=== PATIENT | male | born 1935 | race Caucasian/White ===

== ENCOUNTER 2020-11-11 15:27 | Emergency (ER) | payer MEDICARE, OTHER, SELFPAY ==
[2020-11-11 15:41] VITALS: BP 158/77; PULSE 71; RESP 16; TEMP 36.9; O2SAT 99; BMI 23.5
[2020-11-11 15:59] VITALS: PULSE 66; O2SAT 100
[2020-11-11 16:00] VITALS: PULSE 64; O2SAT 99
--- NOTE | 2020-11-11 16:00 | DI.CT.S_ITS ---
PROCEDURE: CT HEAD/BRAIN WO CON INDICATIONS: fall on face, not on thinners, + facial trauma TECHNIQUE: Noncontrast 4.5 mm thick angled axial sections acquired from the foramen magnum to the vertex, with coronal and sagittal reformats. For radiation dose reduction, the following was used: automated exposure control, adjustment of mA and/or kV according to patient size. COMPARISON: None. FINDINGS: Image quality: Excellent. CSF spaces: Basal cisterns are patent. No extra-axial fluid collections. The ventricles are symmetric in size and shape. Brain: No intracranial bleeds or masses. There is cerebral volume loss for age, with resultant ventricular and sulcal prominence. There are periventricular and deep white matter chronic small vessel ischemic changes. There is intracranial internal carotid artery atherosclerosis. Skull: Skull base and calvarium are intact. Please see maxillofacial CT for description of traumatic facial findings. Sinuses: Visualized sinuses and mastoids are clear. IMPRESSION: No acute intracranial abnormality. Dictated by: Jonny Sommer M.D. on 11/11/2020 at 16:30 Approved by: Jonny Sommer M.D. on 11/11/2020 at 16:30
--- NOTE | 2020-11-11 16:00 | DI.CT.S_ITS ---
PROCEDURE: CT FACIAL BONES WO CON INDICATIONS: fall on face, not on thinners, + facial trauma TECHNIQUE: Noncontrast 2.5 mm thick axial images acquired from the mandible through the frontal sinuses, with coronal and sagittal reformatting. For radiation dose reduction, the following was used: automated exposure control, adjustment of mA and/or kV according to patient size. COMPARISON: None. FINDINGS: Image quality: Excellent. Bones and teeth: Orbital marroquin are intact. Sinus marroquin show no fracture or deformity. Nasal bones and septum are intact. Visualized portions of the mandible demonstrate no fractures or subluxation. Zygomatic arches are intact. Pterygoid plates are intact. Visualized portions of the skull base and auditory canals are intact. Sinuses: Paranasal sinuses are aerated, without fluid levels, mucosal thickening, or mucoceles. Mastoid air cells are aerated. Soft tissues: No edema, masses, or fluid collections. No enlarged lymph nodes. No soft tissue lacerations or debris. Vascular: Visualized vascular structures appear normal in the absence of contrast. Bony vascular foramina and canals are intact. IMPRESSION: No facial fracture identified. Dictated by: Jonny Sommer M.D. on 11/11/2020 at 16:31 Approved by: Jonny Sommer M.D. on 11/11/2020 at 16:32
--- NOTE | 2020-11-11 16:08 | DI.CT.S_ITS ---
PROCEDURE: CT CERVICAL SPINE WO CON INDICATIONS: FALL ON FACE TECHNIQUE: Noncontrast 3 mm thick sections acquired from the skull base to the T4 level. Sagittal and coronal reformats were then constructed. For radiation dose reduction, the following was used: automated exposure control, adjustment of mA and/or kV according to patient size. COMPARISON: None. FINDINGS: Image quality: Excellent. Bones: No fracture. Normal cervical spine vertebral body height and alignment. Normal configuration of the craniocervical junction. The facets are congruent with no evidence of subluxation or dislocation. Extensive degenerative changes. Soft tissues: Prevertebral soft tissues are normal in thickness. No paravertebral hematomas. No apical pneumothoraces. IMPRESSION: No CT evidence of acute traumatic cervical spine injury. Dictated by: Jonny Sommer M.D. on 11/11/2020 at 16:32 Approved by: Jonny Sommer M.D. on 11/11/2020 at 16:33
--- NOTE | 2020-11-11 17:02 | ED_ITS ---
HPI - Fall General Chief Complaint: Fall Stated Complaint: ref by [facility], ct scan, injuries in mouth Time Seen by Provider: 11/11/20 15:45 Source: patient Mode of arrival: Ambulatory History of Present Illness HPI Narrative: Patient is an 85-year-old male who presents after ground level fall. He was playing pickle ball on [facility] when he in a hole on to his face. He feels like he chipped his front teeth. He initially was evaluated at the clinic with a sewed up his right hand. He had no loss of consciousness he has no numbness tingling weakness. He has not had any nausea or vomiting. He is not on any antiplatelet or anticoagulation medication. He was sent here for CT scan Related Data Home Medications Medication Instructions Recorded Confirmed levothyroxine 25 mcg tablet 25 mcg PO DAILY 08/19/20 09/01/20 (Synthroid) Previous Rx's Medication Instructions Recorded gabapentin 100 mg capsule 100 mg PO BEDTIME #360 cap 08/21/20 Allergies Allergy/AdvReac Type Severity Reaction Status Date / Time No Known Drug Allergies Allergy Verified 09/01/20 10:22 Review of Systems Review of Systems Narrative: GENERAL: Denies chills, fatigue, malaise, fever, sweats, travel HEENT: Denies sinus pain, ear pain, sore throat, difficulty swallowing, neck pain RESPIRATORY: Denies dyspnea, cough, wheezing, hemoptysis, sputum. CARDIOVASCULAR: Denies chest pain, palpitations, orthopnea, edema GASTROINTESTINAL: Denies nausea, vomiting, abdominal pain, diarrhea, constipation, melena. : Denies dysuria, frequency, incontinence, hematuria, urinary retention, flank pain. MUSCULOSKELETAL: Denies weakness, joint pain, or bony pain SKIN: No rash, no erythema, no pruritus NEUROLOGIC: Denies weakness, dizziness, headache, numbness, change in speech, confusion. no LOC PSYCHIATRIC: No concerning psychosocial issues. 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 HEENT: Head atraumatic,EOMI, pupils reactive, face symmetric no facial tenderness, no bony step-offs he does have superficial laceration of left upper lip mild swelling able to bite down on popsicle stick and all side, moist mucous membranes NECK: No vertebral tenderness no step-off CARDIOVASCULAR: Regular rate and rhythm without murmurs, rubs or gallops. RESPIRATORY: Breath sounds equal bilaterally, no wheezes rales or rhonchi. ABDOMEN: Soft, nontender. Normoactive bowel sounds all 4 quadrants. No guarding or rebound. EXTREMITIES: Normal range of motion, no clubbing or edema. Neurovascularly intact NEUROLOGICAL: Alert and oriented x4.Normal gait and speech. SKIN: Warm, dry, no laceration, no petechiae, no rashes or lesions. Course Orders Ordered: ED Orders 11/11/20 16:00 CT facial bones wo con Stat CT head/brain wo con Stat 11/11/20 16:08 CT cervical spine wo con Stat Vital Signs Vital signs: Vital Signs - 8 hr 11/11/20 15:41 11/11/20 15:59 11/11/20 16:00 Temperature 98.4 F Pulse Rate 71 66 64 Respiratory Rate 16 Blood Pressure 158/77 H Pulse Oximetry 99 100 99 11/11/20 17:25 Temperature Pulse Rate 70 Respiratory Rate 16 Blood Pressure 184/85 H Pulse Oximetry 100 MDM - Fall Lab Data Labs: Urine Dip Bedside Urine Glucose Negative Bedside Urine Bilirubin - Negative Bedside Urine Ketone - Negative Urine Specific [place] 1.015 Bedside Urine Occult Blood - Negative Bedside Urine pH 6.5 Bedside Urine Protein - Negative Bedside Urine Urobilinogen - Negative Bedside Urine Nitrite - Negative Bedside Urine Leukocytes - Negative Esterase Imaging Data CT scan - head: Radiologist's Impression: PROCEDURE: CT HEAD/BRAIN WO CON INDICATIONS: fall on face, not on thinners, + facial trauma TECHNIQUE: Noncontrast 4.5 mm thick angled axial sections acquired from the foramen magnum to the vertex, with coronal and sagittal reformats. For radiation dose reduction, the following was used: automated exposure control, adjustment of mA and/or kV according to patient size. COMPARISON: None. FINDINGS: Image quality: Excellent. CSF spaces: Basal cisterns are patent. No extra-axial fluid collections. The ventricles are symmetric in size and shape. Brain: No intracranial bleeds or masses. There is cerebral volume loss for age, with resultant ventricular and sulcal prominence. There are periventricular and deep white matter chronic small vessel ischemic changes. There is intracranial internal carotid artery atherosclerosis. Skull: Skull base and calvarium are intact. Please see maxillofacial CT for description of traumatic facial findings. Sinuses: Visualized sinuses and mastoids are clear. IMPRESSION: No acute intracranial abnormality. Dictated by: Jonny Sommer M.D. on 11/11/2020 at 16:30 CT - cervical spine: Radiologist's Impression: PROCEDURE: CT CERVICAL SPINE WO CON INDICATIONS: FALL ON FACE TECHNIQUE: Noncontrast 3 mm thick sections acquired from the skull base to the T4 level. Sagittal and coronal reformats were then constructed. For radiation dose reduction, the following was used: automated exposure control, adjustment of mA and/or kV according to patient size. COMPARISON: None. FINDINGS: Image quality: Excellent. Bones: No fracture. Normal cervical spine vertebral body height and alignment. Normal configuration of the craniocervical junction. The facets are congruent with no evidence of subluxation or dislocation. Extensive degenerative changes. Soft tissues: Prevertebral soft tissues are normal in thickness. No paravertebral hematomas. No apical pneumothoraces. IMPRESSION: No CT evidence of acute traumatic cervical spine injury. Dictated by: Jonny Sommer M.D. on 11/11/2020 at 16:32 CT FACE: Radiologist's Impression: PROCEDURE: CT FACIAL BONES WO CON INDICATIONS: fall on face, not on thinners, + facial trauma TECHNIQUE: Noncontrast 2.5 mm thick axial images acquired from the mandible through the frontal sinuses, with coronal and sagittal reformatting. For radiation dose reduction, the following was used: automated exposure control, adjustment of mA and/or kV according to patient size. COMPARISON: None. FINDINGS: Image quality: Excellent. Bones and teeth: Orbital marroquin are intact. Sinus marroquin show no fracture or d eformity. Nasal bones and septum are intact. Visualized portions of the mandible demonstrate no fractures or subluxation. Zygomatic arches are intact. Pterygoid plates are intact. Visualized portions of the skull base and auditory canals are intact. Sinuses: Paranasal sinuses are aerated, without fluid levels, mucosal thickening, or mucoceles. Mastoid air cells are aerated. Soft tissues: No edema, masses, or fluid collections. No enlarged lymph nodes. No soft tissue lacerations or debris. Vascular: Visualized vascular structures appear normal in the absence of contrast. Bony vascular foramina and canals are intact. IMPRESSION: No facial fracture identified. Dictated by: Jonny Sommer M.D. on 11/11/2020 at 16:31 Approved by: Jonny Sommer M.D. on 11/11/2020 at 16:32 [facility] Narrative Medical decision making narrative: The patient had no loss of consciousness not on anticoagulation. Head CT face CT and cervical spine CT or negative. All he had a laceration of his hand already repaired. At this time he is able to go home. Recommend that he follow-up with a dentist he feels like his teeth are cracked do not see any obvious fracture. Discharge Plan Departure Patient Disposition: Home Clinical Impression: Fall, Closed head injury Instructions: How to Prevent Falls, Closed Head Injury Activity Restrictions/Additional Instructions: *You have been diagnosed with fall *What to do: Expect to be sore for the next couple of days. Increase activity as tolerated. You may need to see a dentist in regards to your teeth. *Continue to take medications as directed Tylenol 650 mg every 4-6 hours if needed for [id number]-[id number] pain Motrin 600 mg every 6-8 hours if needed for [id number] pain *Follow up with your primary care provider in 2-3 days *Return to ER if you should have increasing headache, persistent vomiting, numbness, tingling, weakness, confusion or any new, worsening or concerning symptoms Prescriptions: No Action levothyroxine [Synthroid] 25 mcg tablet 25 mcg PO DAILY RF: 0 gabapentin 100 mg capsule 100 mg PO BEDTIME Qty: 360 RF: 3 Referrals: [place] Mike MD [Primary Care Provider] -
[2020-11-11 17:25] VITALS: BP 184/85; PULSE 70; RESP 16; O2SAT 100
== END 2020-11-11 17:26 | disposition home or self-care (01) ==
PROVIDERS: Emergency Provider Emergency Medicine; PCP Family Medicine
DX: S09.90XA Unspecified injury of head, initial encounter (principal); W19.XXXA Unspecified fall, initial encounter
CPT/HCPCS: 70450; 70486; 72125; 81003; 99283; 99284

== ENCOUNTER → 2021-01-01 11:20 | Outpatient (CLI) | payer MEDICARE, OTHER, SELFPAY ==
[2021-01-01 18:53] LABS: Add Manual Diff / Slide Review NO; Basophils Absolute Auto 0 /uL (0-100); Basophils Percent Auto 0.7 % (0-2); Eosinophils Absolute Auto 100 /uL (0-450); Eosinophils Percent Auto 1.5 % (2-4); Hematocrit 39.5 % (41-53); Hemoglobin 12.9 g/dL (13.5-17.5); Lymphocytes Absolute Auto 1000 /uL (1100-4500); Lymphocytes Percent Auto 17.1 % (25-40); Mean Corpuscular HGB Conc 32.7 % (30-36); Mean Corpuscular Hemoglobin 30.1 PG (26-34); Monocytes Absolute Auto 600 /uL (0-900); Monocytes Percent Auto 10.8 % (3-14); Neutrophils Absolute Auto 4100 /uL (1500-7000); Neutrophils Percent Auto 69.9 % (50-75); Platelet Count 176 X10^3/uL (150-400); White Blood Cell Count 5.9 X10^3/uL (4.5-11.0)
== END ==
PROVIDERS: PCP Family Medicine; Visit Provider Family Medicine
DX: G64 Other disorders of peripheral nervous system (principal)
CPT/HCPCS: 85025

== ENCOUNTER → 2021-02-12 15:48 | Outpatient (CLI) | payer MEDICARE, OTHER, SELFPAY ==
--- NOTE | 2021-02-12 15:52 | DI.MRI.S_ITS ---
PROCEDURE: MR KNEE LT WO CON INDICATIONS: Clicking and pain in left knee TECHNIQUE: Noncontrast sagittal PD fast spin echo and T2 fast spin echo with fat saturation, sagittal 3-D FLASH with fat saturation; coronal T1 spin echo and PD fast spin echo with fat saturation, and axial PD fast spin echo with fat saturation through the knee. COMPARISON: [facility] ([facility]), CR, XR KNEE LT 3V, 01/22/2021, 14:41. FINDINGS: Image quality: Excellent. Menisci: There is medial meniscal extrusion. There is complex tear involving the body and posterior horn of the medial meniscus. In addition, there is a horizontal tear involving the anterior horn of the medial meniscus. The lateral meniscus demonstrates normal morphology and internal signal. The meniscal root ligaments appear intact. Cruciate ligaments: The anterior and posterior cruciate ligaments appear intact. Medial structures: The medial collateral ligament appears intact. The semimembranosus tendon insertions and meniscocapsular junction appear intact. Visualized portions of the pes anserinus tendons appear normal. No abnormal bursal fluid. Lateral structures: The lateral collateral ligament, long and short heads of the biceps femoris tendon appear intact. The popliteus tendon appears normal. Iliotibial band appears normal. Anterior structures: The quadriceps and patellar tendons appear intact. Patellar alignment is normal. No femoral trochlear dysplasia or ventral trochlear prominence. No edema in the infrapatellar fat pad. Bones and cartilage: No bone marrow contusions or fractures. Severe cartilage thinning and full-thickness cartilage defect involving the medial femorotibial compartment with associated subchondral edema secondary to a bone on bone. Mild cartilage loss is also noted in the lateral femorotibial compartment and the patellofemoral compartment. Joint space: There is small knee joint fluid. There is a moderate sized Ordonez's cyst. Normal appearing synovial plicae are incidentally noted. IMPRESSION: 1. Medial meniscal extrusion and complex tear involving the body and posterior horn of the medial meniscus. There is also a horizontal tear involving the anterior horn of the medial meniscus. 2. 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 Subchondral edema in the medial femoral condyle and medial tibial plateau secondary to [id number]. 3. Small knee joint effusion. 4. A moderate-sized Ordonez cyst. Dictated by: Pattie Browning M.D. on 02/13/2021 at 8:33 Approved by: Pattie Browning M.D. on 02/13/2021 at 8:40
== END ==
PROVIDERS: PCP Physician Assistant; Referring Provider Family Medicine; Visit Provider Family Medicine
DX: S83.232A Complex tear of medial meniscus, current injury, left knee, initial encounter (principal); M94.262 Chondromalacia, left knee; M25.462 Effusion, left knee; M71.22 Synovial cyst of popliteal space [Baker], left knee; M25.562 Pain in left knee
CPT/HCPCS: 73721

== ENCOUNTER → 2021-06-26 11:39 | Outpatient (CLI) | payer MEDICARE, OTHER, SELFPAY ==
[2021-06-26 18:42] LABS: Alanine Aminotransferase 23 IU/L (<50); Albumin 4.2 g/dL (3.5-5.0); Albumin Globulin Ratio 1.4 (1.0-2.8); Alkaline Phosphatase 47 U/L (38-126); Aspartate Aminotransferase 47 IU/L (17-59); Bilirubin Total 1.6 mg/dL (0.2-1.3); Blood Urea Nitrogen 27 mg/dL (9-20); Calcium 9.5 mg/dL (8.4-10.2); Carbon Dioxide 32 mmol/L (22-32); Chloride 99 mmol/L (98-107); Estimated Glomerular Filt Rate 46 mL/min (>60); Globulin 2.9 g/dL (1.7-4.1); Glucose 82 mg/dL (80-110); HEMOLYSIS 15 (0-50); Potassium 4.6 mmol/L (3.4-5.1); Sodium 139 mmol/L (137-145); Total Protein 7.1 g/dL (6.3-8.2)
[2021-06-26 18:46] LABS: Add Manual Diff / Slide Review NO; Basophils Absolute Auto 0 /uL (0-100); Basophils Percent Auto 0.5 % (0-2); Eosinophils Absolute Auto 100 /uL (0-450); Eosinophils Percent Auto 1.1 % (2-4); Hematocrit 43.2 % (41-53); Hemoglobin 14.6 g/dL (13.5-17.5); Lymphocytes Absolute Auto 1300 /uL (1100-4500); Lymphocytes Percent Auto 13.7 % (25-40); Mean Corpuscular HGB Conc 33.9 % (30-36); Mean Corpuscular Hemoglobin 30.6 PG (26-34); Mean Corpuscular Volume 90.3 fL (80-100); Monocytes Absolute Auto 1000 /uL (0-900); Monocytes Percent Auto 10.6 % (3-14); Neutrophils Absolute Auto 7100 /uL (1500-7000); Neutrophils Percent Auto 74.1 % (50-75); Platelet Count 171 X10^3/uL (150-400); Red Blood Cell Count 4.78 X10^6/uL (4.5-5.9); Red Cell Distribution Width 14.2 % (11.6-14.8); White Blood Cell Count 9.6 X10^3/uL (4.5-11.0)
== END ==
PROVIDERS: PCP Family Medicine; Visit Provider Physician Assistant
DX: G64 Other disorders of peripheral nervous system (principal); S39.92XA Unspecified injury of lower back, initial encounter
CPT/HCPCS: 80053; 85025

== ENCOUNTER → 2021-07-06 11:03 | Outpatient (CLI) | payer MEDICARE, OTHER, SELFPAY ==
[2021-07-06 18:46] LABS: Add Manual Diff / Slide Review NO; Basophils Absolute Auto 100 /uL (0-100); Basophils Percent Auto 0.9 % (0-2); Eosinophils Absolute Auto 100 /uL (0-450); Eosinophils Percent Auto 1.7 % (2-4); Hematocrit 40.5 % (41-53); Hemoglobin 13.7 g/dL (13.5-17.5); Lymphocytes Absolute Auto 1400 /uL (1100-4500); Lymphocytes Percent Auto 21.1 % (25-40); Mean Corpuscular HGB Conc 33.9 % (30-36); Mean Corpuscular Hemoglobin 30.5 PG (26-34); Mean Corpuscular Volume 89.8 fL (80-100); Monocytes Absolute Auto 600 /uL (0-900); Monocytes Percent Auto 9.1 % (3-14); Neutrophils Absolute Auto 4600 /uL (1500-7000); Neutrophils Percent Auto 67.2 % (50-75); Platelet Count 238 X10^3/uL (150-400); Red Blood Cell Count 4.51 X10^6/uL (4.5-5.9); White Blood Cell Count 6.8 X10^3/uL (4.5-11.0)
[2021-07-06 18:57] LABS: Alanine Aminotransferase 19 IU/L (<50); Albumin 3.9 g/dL (3.5-5.0); Albumin Globulin Ratio 1.6 (1.0-2.8); Alkaline Phosphatase 54 U/L (38-126); Aspartate Aminotransferase 31 IU/L (17-59); BUN Creatinine Ratio 21.4 (6-22); Bilirubin Total 0.8 mg/dL (0.2-1.3); Blood Urea Nitrogen 28 mg/dL (9-20); Calcium 9.7 mg/dL (8.4-10.2); Carbon Dioxide 30 mmol/L (22-32); Chloride 103 mmol/L (98-107); Estimated Glomerular Filt Rate 54 mL/min (>60); Globulin 2.5 g/dL (1.7-4.1); Glucose 95 mg/dL (80-110); HEMOLYSIS 16 (0-50); Potassium 4.4 mmol/L (3.4-5.1); Sodium 139 mmol/L (137-145); Total Protein 6.4 g/dL (6.3-8.2)
== END ==
PROVIDERS: PCP Family Medicine; Visit Provider Physician Assistant
DX: G64 Other disorders of peripheral nervous system (principal); S22.080A Wedge compression fracture of T11-T12 vertebra, initial encounter for closed fracture; S39.92XA Unspecified injury of lower back, initial encounter; Z79.899 Other long term (current) drug therapy
CPT/HCPCS: 80053; 85025

== ENCOUNTER → 2022-08-04 11:31 | Outpatient (CLI) | payer MEDICARE, OTHER, SELFPAY ==
--- NOTE | 2022-08-04 11:34 | DI.CT.S_ITS ---
PROCEDURE: CT CHEST WO CON INDICATIONS: coughing food particles, severe coughing spasms TECHNIQUE: Noncontrast 5 mm thick sections acquired from the pulmonary apices to the posterior costophrenic angles. 1 mm lung window, 5 mm thick coronal and sagittal and 7 mm axial MIP reformats were then acquired. For radiation dose reduction, the following was used: automated exposure control, adjustment of mA and/or kV according to patient size. COMPARISON: None. FINDINGS: Image quality: Excellent. Lungs and pleura: No acute air space opacities. No pleural effusions or pneumothorax. Central and peripheral airways are patent and normal in caliber. Mediastinum: Heart size is normal. Mild coronary artery calcification. No pericardial effusion. There are a few borderline anterior mediastinal lymph nodes. No mediastinal adenopathy by size criteria. Thoracic aorta and central pulmonary arteries are normal in size. Esophagus is normal in caliber. There is a moderate-sized hiatal hernia containing about proximal 1/3 of the stomach and the GE junction. Bones and chest wall: There is a compression fracture of T12 which appears chronic. No other fractures or suspicious bone lesions. Mild reverse S scoliosis. No supraclavicular or axillary adenopathy. Normal thyroid. Abdomen: Incompletely evaluated renal cysts and probable abdominal aortic aneurysm. 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 IMPRESSION: 1. No airspace disease to suggest aspiration pneumonia. 2. Moderate-sized hiatal hernia may predispose to gastroesophageal reflux. 3. Incidental findings in the upper abdomen as described. Dictated by: Ashley Bragg M.D. on 08/04/2022 at 17:27 Approved by: Ashley Bragg M.D. on 08/04/2022 at 17:44
--- NOTE | 2022-08-04 11:34 | DI.RAD.S_ITS ---
PROCEDURE: FL BARIUM SWALLOW INDICATIONS: coughing food particles, suspect hernia COMPARISON: [facility], CT, CT CHEST WO [facility], 08/04/2022, 11:41. FINDINGS: Function: There is moderately severe esophageal dysmotility with mild disorganized esophageal peristalsis. Mild gastroesophageal reflux is elicited joint examination. There is normal transit of a calibrated barium tablet through the esophagus into the stomach. Morphology: There is a moderate-sized Zenker's diverticulum. A large paraesophageal hiatal hernia is present. Air-contrast images demonstrate normal mucosal morphology. There is mild narrowing of distal esophagus at the gastroesophageal junction. No esophageal obstruction. Limited images of the stomach demonstrate normal appearance. IMPRESSION: 1. A Zenker's diverticulum. 2. Large paraesophageal hiatal hernia. 3. Moderately severe esophageal dysmotility. 4. Mild gastroesophageal reflux. 5. Mild narrowing at the gastroesophageal junction. There is, however, no esophageal obstruction. If clinically indicated, EGD can be obtained for further evaluation. Dictated by: Pattie Browning M.D. on 08/04/2022 at 13:19 Approved by: Pattie Browning M.D. on 08/04/2022 at 13:38
== END ==
PROVIDERS: PCP Family Medicine; Referring Provider Family Medicine; Visit Provider Family Medicine
DX: K22.5 Diverticulum of esophagus, acquired (principal); K44.9 Diaphragmatic hernia without obstruction or gangrene; K22.4 Dyskinesia of esophagus; K21.9 Gastro-esophageal reflux disease without esophagitis
CPT/HCPCS: 71250; 74220

== ENCOUNTER → 2022-08-10 13:00 | Outpatient (CLI) | payer MEDICARE, OTHER, SELFPAY ==
[2022-08-10 20:03] LABS: Add Manual Diff / Slide Review NO; Basophils Absolute Auto 0 /uL (0-100); Basophils Percent Auto 0.5 % (0-2); Eosinophils Absolute Auto 100 /uL (0-450); Eosinophils Percent Auto 2.2 % (2-4); Hematocrit 40.3 % (41-53); Hemoglobin 13.3 g/dL (13.5-17.5); Lymphocytes Absolute Auto 1200 /uL (1100-4500); Lymphocytes Percent Auto 20.1 % (25-40); Mean Corpuscular HGB Conc 33.1 % (30-36); Mean Corpuscular Hemoglobin 29.3 PG (26-34); Mean Corpuscular Volume 88.7 fL (80-100); Monocytes Absolute Auto 800 /uL (0-900); Monocytes Percent Auto 12.8 % (3-14); Neutrophils Absolute Auto 3900 /uL (1500-7000); Neutrophils Percent Auto 64.4 % (50-75); Platelet Count 204 X10^3/uL (150-400); Red Blood Cell Count 4.55 X10^6/uL (4.5-5.9); Red Cell Distribution Width 15.6 % (11.6-14.8); White Blood Cell Count 6.1 X10^3/uL (4.5-11.0)
[2022-08-10 20:09] LABS: Alanine Aminotransferase 17 IU/L (<50); Albumin 3.7 g/dL (3.5-5.0); Albumin Globulin Ratio 1.4 (1.0-2.8); Alkaline Phosphatase 72 U/L (38-126); Aspartate Aminotransferase 28 IU/L (17-59); BUN Creatinine Ratio 20.2 (6-22); Bilirubin Total 1.1 mg/dL (0.2-1.3); Blood Urea Nitrogen 25 mg/dL (9-20); Calcium 9.3 mg/dL (8.4-10.2); Carbon Dioxide 30 mmol/L (22-32); Chloride 102 mmol/L (98-107); Estimated Glomerular Filt Rate 57 mL/min (>60); Globulin 2.6 g/dL (1.7-4.1); Glucose 88 mg/dL (80-110); HEMOLYSIS 16 (0-50); Potassium 4.4 mmol/L (3.4-5.1); Sodium 139 mmol/L (137-145); Total Protein 6.3 g/dL (6.3-8.2)
[2022-08-10 20:38] LABS: Prostate Specific Antigen Scrn 13.9 ng/mL (0.1-4.0); TSH w/ Reflex to FT4 4.45 uIU/mL (0.47-4.68)
== END ==
PROVIDERS: PCP Family Medicine; Visit Provider Family Medicine
DX: G60.9 Hereditary and idiopathic neuropathy, unspecified (principal); K59.00 Constipation, unspecified; Z12.5 Encounter for screening for malignant neoplasm of prostate; K21.9 Gastro-esophageal reflux disease without esophagitis; N28.9 Disorder of kidney and ureter, unspecified
CPT/HCPCS: 80053; 84443; 85025; G0103

== ENCOUNTER → 2022-08-18 08:47 | Outpatient (CLI) | payer MEDICARE, OTHER, SELFPAY ==
[2022-08-18 20:16] LABS: Prostate Specific Antigen 13.3 ng/mL (0.10-4.00)
== END ==
PROVIDERS: PCP Family Medicine; Visit Provider Family Medicine
DX: N40.0 Benign prostatic hyperplasia without lower urinary tract symptoms (principal); R97.20 Elevated prostate specific antigen [PSA]
CPT/HCPCS: 84153

== ENCOUNTER → 2022-08-20 08:31 | Outpatient (CLI) | payer MEDICARE, OTHER, SELFPAY ==
--- NOTE | 2022-08-20 08:32 | DI.CT.S_ITS ---
PROCEDURE: CT ABDOMEN PELVIS W CON INDICATIONS: high PSA, new onset narrow stools TECHNIQUE: After the administration of intravenous contrast, axial sections acquired from the lung bases to the pubic symphysis. Coronal and sagittal reformats were performed. For radiation dose reduction, the following was used: automated exposure control, adjustment of mA and/or kV according to patient size. COMPARISON: [facility], CT, CT CHEST ABDOMEN PELVIS WITH CONTRAST, 06/24/2021, 14:37. FINDINGS: Image quality: Good Lower chest: Moderate hiatal hernia. Unremarkable lung bases. There is suspected coronary calcifications. Solid organs: Liver morphology suggestive of chronic liver disease. There may also be steatosis. Gallbladder appears unremarkable. No pathologic dilation of the biliary tree or pancreatic duct. No splenomegaly. No adrenal nodules. Bosniak 1 and 2 renal lesions are present, for which no dedicated followup is necessary per 2019 proposed guidelines. No ureter dilation. Parapelvic cysts are also present. Vessels and lymph nodes: No pathologic adenopathy by size criteria. There are few prominent lymph nodes that are indeterminate in the setting of possible prostate cancer, for example adjacent to the left psoas muscle measuring 8 mm (/48). Abdominal aortic aneurysm measures up to 4.8 cm in AP dimension on sagittal images, previously similar. Bowel and peritoneum: Moderate-sized duodenal diverticulum. Numerous colonic diverticula are present. No focal mass. There is an area of narrowing however at the rectosigmoid junction, which is indeterminate for malignancy versus peristalsis. See axial image . This is not a colonographic study. No pathologic ascites or abscess. Body wall: Small fat containing right inguinal hernia. Tiny umbilical hernia also present. Pelvis: Confluent enhancement at the left apically peripheral zone of the prostate. This area is more conspicuous compared to prior CT from 2021. There also suspected BPH nodules. Bladder is unremarkable. Bones: Degenerative changes. No definitely suspicious osseous lesion. Height loss of the T12 vertebral body, increased compared to 2021. IMPRESSION: Findings suspicious for prostate malignancy in the left peripheral zone apex (). Findings would be better evaluated on prostate MRI in the setting of elevated PSA. In addition, there is indeterminate borderline enlarged lymph node adjacent to the left psoas muscle (/48). If there is future tissue confirmation of prostate malignancy, consider referral for PSMA PET for further evaluation. There is an area of narrowing at the rectosigmoid junction, indeterminate for peristalsis versus adenocarcinoma (2/68). Recommend correlation with colonoscopy. Numerous colonic diverticula are present. Abdominal aortic aneurysm measuring up to 4.8 cm in AP dimension. Increased height loss of the T12 vertebral body compared to prior. Other incidental and likely nonacute findings above. Dictated by: Eduardo Ly M.D. on 08/20/2022 at 11:18 Approved by: Eduardo Ly M.D. on 08/20/2022 at 11:26
== END ==
PROVIDERS: PCP Family Medicine; Referring Provider Family Medicine; Visit Provider Family Medicine
DX: N28.1 Cyst of kidney, acquired (principal); N28.89 Other specified disorders of kidney and ureter; K57.10 Diverticulosis of small intestine without perforation or abscess without bleeding; R97.20 Elevated prostate specific antigen [PSA]; R19.5 Other fecal abnormalities; K44.9 Diaphragmatic hernia without obstruction or gangrene; I71.40 Abdominal aortic aneurysm, without rupture, unspecified; K57.90 Diverticulosis of intestine, part unspecified, without perforation or abscess without bleeding; K40.90 Unilateral inguinal hernia, without obstruction or gangrene, not specified as recurrent
CPT/HCPCS: 74177; Q9967

== ENCOUNTER → 2022-09-28 10:47 | Outpatient (CLI) | payer MEDICARE, OTHER, SELFPAY ==
--- NOTE | 2022-09-28 10:48 | DI.NM.S_ITS ---
PROCEDURE: NM HARSHAD PERF SPECT R&S PHARM Rest and pharmacological stress myocardial perfusion SPECT with gated imaging and ejection fraction RADIOPHARMACEUTICAL: 12.2 mCi Tc-99m tetrafosmin IV at rest and 25.5 mCi Tc-99m tetrafosmin IV at peak effect of pharmacological stress. Azm-pje-rawsskif was performed. INDICATIONS: dyspnea TECHNIQUE: Radiopharmaceutical was injected at peak stress test, and also at rest. SPECT images were obtained. SPECT myocardial perfusion images were displayed in short axis, horizontal long axis, and vertical long axis views. Gated images were reviewed using [employer] software. COMPARISON: None. CARDIAC STRESS: A pharmacologic stress test was performed under the supervision of an attending staff, using an infusion of lexiscan 0.4mg IV X1. Hemodynamic data: There is normal blood pressure and heart rate response to pharmacologic stress. Symptoms: The patient denied anginal chest pain. Aminophylline: none EKG: No diagnostic changes of ischemia; no ectopy. FINDINGS: Raw data: There is good myocardial uptake of radiotracer. No significant motion artifacts. Lstf-qx-ucnph ratio is 0.36 (normal is less than 0.38 for tetrafosmin tracer). Left ventricle function: Gated images demonstrate normal left ventricular wall thickening. No segmental wall motion abnormalities. No transient ischemic dilation; TID is 0.95 (normal less than 1.3). Left ventricle resting end diastolic volume is 95 mL. Left ventricle stress ejection fraction is 73%; normal range is above 45%. Myocardial perfusion: There is a moderately intense fixed inferior wall defect that resolves with prone imaging, suggesting diaphragmatic attenuation artifact. No ischemia or infarction. IMPRESSION: Low risk, probably normal pharmaceutical nuclear stress test 1) There is a moderately intense fixed inferior wall defect that resolves with prone imaging, suggesting diaphragmatic attenuation artifact. No ischemia or infarction. 2) Normal left ventricular size, wall motion, and systolic function (EF post stress 73%). 3) No ST changes with lexiscan. 4) No angina during the study. 5) No prior nuclear stress test available for comparison. Dictated by: Anna Johnson MD on 09/29/2022 at 13:26 Approved by: Anna Johnson MD on 09/29/2022 at 13:29
== END ==
PROVIDERS: PCP Family Medicine; Referring Provider Family Medicine; Visit Provider Family Medicine
DX: R06.00 Dyspnea, unspecified (principal); I25.10 Atherosclerotic heart disease of native coronary artery without angina pectoris
CPT/HCPCS: 78452; 93017; A9502; J2785

== ENCOUNTER → 2022-11-08 14:31 | Outpatient (CLI) | payer MEDICARE, OTHER, SELFPAY ==
[2022-11-08 16:02] LABS: Prostate Specific Antigen Scrn 15.9 ng/mL (0.1-4.0)
== END ==
PROVIDERS: PCP Family Medicine; Referring Provider Family Medicine; Visit Provider Family Medicine
DX: Z12.5 Encounter for screening for malignant neoplasm of prostate (principal); N42.89 Other specified disorders of prostate
CPT/HCPCS: 36415; G0103

== ENCOUNTER → 2023-06-09 09:50 | Outpatient (CLI) | payer MEDICARE, OTHER, SELFPAY ==
[2023-06-09 20:38] LABS: Add Manual Diff / Slide Review NO; Basophils Absolute Auto 0 /uL (0-100); Basophils Percent Auto 0.5 % (0-2); Eosinophils Absolute Auto 200 /uL (0-450); Eosinophils Percent Auto 1.7 % (2-4); Hemoglobin 14.2 g/dL (13.5-17.5); Lymphocytes Absolute Auto 1600 /uL (1100-4500); Lymphocytes Percent Auto 15.8 % (25-40); Mean Corpuscular HGB Conc 32.9 % (30-36); Mean Corpuscular Hemoglobin 30.1 PG (26-34); Mean Corpuscular Volume 91.5 fL (80-100); Monocytes Absolute Auto 900 /uL (0-900); Monocytes Percent Auto 9.5 % (3-14); Neutrophils Absolute Auto 7100 /uL (1500-7000); Neutrophils Percent Auto 72.5 % (50-75); Platelet Count 209 X10^3/uL (150-400); Red Blood Cell Count 4.71 X10^6/uL (4.5-5.9); Red Cell Distribution Width 14.7 % (11.6-14.8); White Blood Cell Count 9.8 X10^3/uL (4.5-11.0)
[2023-06-09 20:40] LABS: Cholesterol 140 mg/dL (140-199); HDL Cholesterol 47 mg/dL (40-60); LDL Cholesterol Calculated 72 mg/dL (<100); Triglycerides 107 mg/dL (35-150)
[2023-06-09 21:10] LABS: TSH w/ Reflex to FT4 4.22 uIU/mL (0.47-4.68)
== END ==
PROVIDERS: PCP Family Medicine; Visit Provider Physician Assistant Medical
DX: E03.9 Hypothyroidism, unspecified (principal); D64.9 Anemia, unspecified; I25.10 Atherosclerotic heart disease of native coronary artery without angina pectoris; I25.84 Coronary atherosclerosis due to calcified coronary lesion
CPT/HCPCS: 80061; 84443; 85025

== ENCOUNTER → 2023-07-27 08:55 | Outpatient (CLI) | payer MEDICARE, OTHER, SELFPAY ==
[2023-07-27 09:41] LABS: Add Manual Diff / Slide Review NO; Basophils Absolute Auto 100 /uL (0-100); Basophils Percent Auto 0.7 % (0-2); Eosinophils Absolute Auto 200 /uL (0-450); Eosinophils Percent Auto 2.6 % (2-4); Hematocrit 40.2 % (41-53); Hemoglobin 13.5 g/dL (13.5-17.5); Lymphocytes Absolute Auto 1400 /uL (1100-4500); Lymphocytes Percent Auto 15.5 % (25-40); Mean Corpuscular HGB Conc 33.6 % (30-36); Mean Corpuscular Hemoglobin 30.4 PG (26-34); Mean Corpuscular Volume 90.6 fL (80-100); Monocytes Absolute Auto 1100 /uL (0-900); Monocytes Percent Auto 12.2 % (3-14); Neutrophils Absolute Auto 6300 /uL (1500-7000); Platelet Count 237 X10^3/uL (150-400); Red Blood Cell Count 4.44 X10^6/uL (4.5-5.9); Red Cell Distribution Width 13.6 % (11.6-14.8); White Blood Cell Count 9.1 X10^3/uL (4.5-11.0)
[2023-07-27 10:10] LABS: Alanine Aminotransferase 13 IU/L (<50); Albumin Globulin Ratio 1.5 (1.0-2.8); Alkaline Phosphatase 62 U/L (38-126); Aspartate Aminotransferase 25 IU/L (17-59); BUN Creatinine Ratio 24.8 (6-22); Bilirubin Total 0.7 mg/dL (0.2-1.3); Blood Urea Nitrogen 26 mg/dL (9-20); Calcium 9.6 mg/dL (8.4-10.2); Carbon Dioxide 27 mmol/L (22-32); Chloride 107 mmol/L (98-107); Estimated Glomerular Filt Rate > 60 mL/min (>60); Globulin 2.6 g/dL (1.7-4.1); Glucose 68 mg/dL (80-110); HEMOLYSIS < 15 (0-50); Potassium 4.3 mmol/L (3.4-5.1); Sodium 139 mmol/L (137-145); Total Protein 6.6 g/dL (6.3-8.2)
[2023-07-27 10:34] LABS: Prostate Specific Antigen < 0.064 ng/mL (0.10-4.00)
== END ==
LOC: LAB 08:56
PROVIDERS: PCP Family Medicine; Referring Provider Family Medicine; Visit Provider Family Medicine
DX: N40.0 Benign prostatic hyperplasia without lower urinary tract symptoms; D64.9 Anemia, unspecified; C61 Malignant neoplasm of prostate; N42.89 Other specified disorders of prostate; R97.20 Elevated prostate specific antigen [PSA]; E03.9 Hypothyroidism, unspecified
CPT/HCPCS: 36415; 80053; 84153; 85025

== ENCOUNTER → 2023-07-29 08:38 | Outpatient (CLI) | payer MEDICARE, OTHER, SELFPAY ==
--- NOTE | 2023-07-29 08:39 | DI.US.S_ITS ---
PROCEDURE: US ABD AORTA ANEURYSM SCREEN INDICATIONS: AAA TECHNIQUE: Real time scanning was performed of the aorta and iliac arteries, with image documentation. COMPARISON: [facility], CT, CT ABDOMEN PELVIS W CON, 08/20/2022, 10:16. FINDINGS: Aorta: Proximal aortic is not well seen secondary to overlying bowel gas. Mid to distal abdominal aortic aneurysm measuring approximately 5.8 x 5.0 centimeters in AP and transverse dimensions and 11.6 centimeters in length. Atherosclerotic vascular calcifications are present. Iliac arteries: Right common iliac artery measures 1.0 cm. Left common iliac artery measures 1.1 cm. IMPRESSION: Abdominal aortic aneurysm as above measuring up to 5.8 centimeters in maximal AP dimension. Compared to prior CT scan, this is increased in size. Recommend vascular surgery consultation. Dictated by: Ky Wing M.D. on 07/29/2023 at 10:05 Approved by: Ky Wing M.D. on 07/29/2023 at 10:12
== END ==
PROVIDERS: PCP Family Medicine; Referring Provider Family Medicine; Visit Provider Family Medicine
DX: I71.40 Abdominal aortic aneurysm, without rupture, unspecified (principal)
CPT/HCPCS: 76706

== ENCOUNTER → 2023-08-22 11:20 | Outpatient (CLI) | payer MEDICARE, OTHER, SELFPAY ==
[2023-08-22 19:38] LABS: Hematocrit 38.6 % (41-53); Hemoglobin 12.9 g/dL (13.5-17.5); Mean Corpuscular HGB Conc 33.4 % (30-36); Mean Corpuscular Hemoglobin 30.3 PG (26-34); Mean Corpuscular Volume 90.7 fL (80-100); Platelet Count 276 X10^3/uL (150-400); Red Blood Cell Count 4.26 X10^6/uL (4.5-5.9); Red Cell Distribution Width 13.2 % (11.6-14.8); White Blood Cell Count 7.7 X10^3/uL (4.5-11.0)
[2023-08-22 19:41] LABS: BUN Creatinine Ratio 24.3 (6-22); Blood Urea Nitrogen 28 mg/dL (9-20); Calcium 8.8 mg/dL (8.4-10.2); Carbon Dioxide 27 mmol/L (22-32); Chloride 104 mmol/L (98-107); Estimated Glomerular Filt Rate > 60 mL/min (>60); Glucose 87 mg/dL (80-110); HEMOLYSIS 28 (0-50); Potassium 3.6 mmol/L (3.4-5.1); Sodium 141 mmol/L (137-145)
[2023-08-22 19:48] LABS: NT-proBNP (BNP-Adult 18+) 646 pg/mL (<450)
[2023-08-22 20:13] LABS: Ferritin 113 ng/mL (18-464)
== END ==
PROVIDERS: PCP Family Medicine; Visit Provider Family Medicine
DX: R04.2 Hemoptysis (principal); R06.00 Dyspnea, unspecified; D64.9 Anemia, unspecified; M79.89 Other specified soft tissue disorders
CPT/HCPCS: 80048; 82728; 83880; 85027

== ENCOUNTER → 2023-11-08 11:28 | Outpatient (CLI) | payer MEDICARE, OTHER, SELFPAY ==
[2023-11-08 19:11] LABS: Add Manual Diff / Slide Review NO; Basophils Absolute Auto 0 /uL (0-100); Basophils Percent Auto 0.5 % (0-2); Eosinophils Absolute Auto 100 /uL (0-450); Eosinophils Percent Auto 1.5 % (2-4); Hematocrit 37.5 % (41-53); Hemoglobin 12.4 g/dL (13.5-17.5); Lymphocytes Absolute Auto 1400 /uL (1100-4500); Lymphocytes Percent Auto 15.3 % (25-40); Mean Corpuscular HGB Conc 33.1 % (30-36); Mean Corpuscular Hemoglobin 29.7 PG (26-34); Mean Corpuscular Volume 89.5 fL (80-100); Monocytes Absolute Auto 900 /uL (0-900); Neutrophils Absolute Auto 6400 /uL (1500-7000); Neutrophils Percent Auto 72.7 % (50-75); Platelet Count 223 X10^3/uL (150-400); Red Blood Cell Count 4.19 X10^6/uL (4.5-5.9); Red Cell Distribution Width 14.4 % (11.6-14.8); White Blood Cell Count 8.8 X10^3/uL (4.5-11.0)
[2023-11-08 19:31] LABS: BUN Creatinine Ratio 26.9 (6-22); Blood Urea Nitrogen 36 mg/dL (9-20); Calcium 9.3 mg/dL (8.4-10.2); Carbon Dioxide 25 mmol/L (22-32); Chloride 104 mmol/L (98-107); Estimated Glomerular Filt Rate 52 mL/min (>60); Glucose 114 mg/dL (80-110); HEMOLYSIS < 15 (0-50); Potassium 4.1 mmol/L (3.4-5.1); Sodium 140 mmol/L (137-145)
[2023-11-08 19:42] LABS: NT-proBNP (BNP-Adult 18+) 259 pg/mL (<450)
[2023-11-08 20:04] LABS: Prostate Specific Antigen < 0.064 ng/mL (0.10-4.00)
== END ==
PROVIDERS: PCP Family Medicine; Visit Provider Family Medicine
DX: R26.89 Other abnormalities of gait and mobility (principal); C61 Malignant neoplasm of prostate; R06.09 Other forms of dyspnea; H91.90 Unspecified hearing loss, unspecified ear; K44.9 Diaphragmatic hernia without obstruction or gangrene; R60.0 Localized edema; R79.89 Other specified abnormal findings of blood chemistry
CPT/HCPCS: 80048; 83880; 84153; 85025

== ENCOUNTER → 2023-11-23 12:07 | Outpatient (CLI) | payer MEDICARE, OTHER, SELFPAY ==
[2023-11-23 13:01] LABS: Influenza A - CEPHEID Flu A NEGATIVE (NEGATIVE); Influenza B - CEPHEID Flu B NEGATIVE (NEGATIVE); Respiratory Syncytial Virus Negative (Negative)
[2023-11-23 13:11] LABS: COVID-19 CEPHEID 4-PLEX PCR Negative (Negative)
== END ==
PROVIDERS: PCP Family Medicine; Visit Provider Nurse Practitioner Family
DX: R05.1 Acute cough (principal)
CPT/HCPCS: 0241U

== ENCOUNTER 2023-11-23 13:45 | Inpatient (IN) | payer MEDICARE, OTHER, SELFPAY ==
[2023-11-23] VITALS (9 sets, daily range): BP systolic 131–192; BP diastolic 71–95; PULSE 82–98; RESP 24–37; TEMP 36.9–37.2; O2SAT 89–97; BMI 23.8; BMI 23.2
--- NOTE | 2023-11-23 14:26 | ED.RECABL ---
HPI - Recheck/Abnormal Lab/Rx <Romina Hernandez PA-C - Last Filed: 11/25/23 10:51> General Chief Complaint: Recheck/Abnormal Lab/Rx Stated Complaint: Cough Time Seen by Provider: 11/23/23 14:22 Source: patient Mode of arrival: Ambulatory History of Present Illness HPI narrative: Patient is a very pleasant 88-year-old male that presents to the emergency room department after being seen in the urgent care today. Patient has a history of a hiatal hernia, currently being worked up for surgery. Patient was seen at the GI clinic in [facility] yesterday and underwent an endoscopy, had IV fluids, and underwent anesthesia for the procedure. Significant other who is with him states that the procedure went well and he was discharged in stable condition. However, after the procedure the patient started coughing incessantly, he was seen in the urgent care today and had a workup of a panel for respiratory viruses and COVID and flu which were negative. He was prescribed benzonatate, and an inhaler. And discharge. His significant other was concerned about the continued coughing and brought him to the emergency department to be further evaluated. Here in the emergency department the patient complains of severe coughing fits, and worsening ongoing chronic neuropathy. The patient continues to have coughing fits, here in the emergency room department, he is hypoxic, appears uncomfortable. He is currently coughing up white 6 sputum. Patient denies cardiac history, denies heart failure history. He currently is being treated for prostate cancer. Last treatment with Lupron was in July of this year. He currently is due for a dose on December 12. Patient takes his medications as prescribed. No other current complaints at this time. Patient denies fever, URI like symptoms. He denies nausea, vomiting or diarrhea. He has no urinary symptoms. Related Data Home Medications Medication Instructions Recorded Confirmed atorvastatin 20 mg tablet 20 mg PO DAILY 06/09/23 12/13/23 aspirin 81 mg tablet,delayed 81 mg PO DAILY 11/23/23 12/13/23 release ipratropium bromide 42 mcg (0.06 intranasal 11/28/23 12/13/23 %) nasal spray Previous Rx's Medication Instructions Recorded omeprazole magnesium 20 mg 20 mg PO BID #60 tabs 03/22/22 tablet,delayed release (Prilosec OTC) furosemide 20 mg tablet 20 mg PO QAM for fluid overload. 10/20/23 check with before stopping #30 tabs benzonatate 200 mg capsule 200 mg PO BID PRN cough #28 caps 11/23/23 guaifenesin 100 mg/5 mL oral liquid 100 mg (5 mL) PO Q4HR PRN Cough 11/25/23 #240 mL levofloxacin 500 mg tablet 500 mg PO DAILY #5 tabs 11/25/23 prednisone 5 mg tablet 5 mg PO DAILY #30 tabs 11/28/23 Xarelto 20 mg tablet (rivaroxaban) 20 mg PO QPM stroke prevention #84 12/01/23 tabs tadalafil 20 mg tablet 20 mg PO DAILY PRN sexual activity 12/14/23 #90 tabs Allergies Allergy/AdvReac Type Severity Reaction Status Date / Time No Known Drug Allergies Allergy Verified 11/28/23 08:17 Review of Systems <Romina Hernandez PA-C - Last Filed: 11/25/23 10:51> Review of Systems Narrative: Negative except as above Cardiovascular Comments: Denies chest pain Respiratory Comments: Assessment, ongoing, relentless coughing, white sick sputum and congestion, dry mucous membranes. Patient's hypoxia seems to be new, he does not currently wear oxygen, has never been intubated, has never had sepsis, currently has never had any cardiac related issues. Musculoskeletal Comments: Bilateral lower extremity neuropathy this is not new this is ongoing however the patient states that it is worsening and is having a lot of lower extremity discomfort and pain Patient History <Romina Hernandez PA-C - Last Filed: 11/25/23 10:51> Medical History Dyspepsia Lower extremity neuropathy Hypothyroid Left knee pain Left knee pain Hearing loss associated with syndrome of both ears Preventative health care Post zoster neuralgia Social History household members: significant other Smoking Status: Never smoker alcohol intake: current additional social history: Has new girlfriend Smoking Status: Never smoker alcohol intake frequency: 0-2 drinks per day Substance Use Type: does not use Exam <ROLO Rockwell Last Filed: 11/25/23 10:51> Initial Vital Signs Initial Vital Signs: Vital Signs Temperature 98.4 F 09/11/24 14:05 Pulse Rate 82 11/23/23 14:05 Respiratory Rate 24 11/23/23 14:05 Blood Pressure 161/75 H 11/23/23 14:05 Pulse Oximetry 90 L 11/23/23 14:05 Oxygen Delivery Method Room Air 11/23/23 14:05 Const General: cooperative, well developed, well groomed, in distress and anxious Nutritional Appearance: average body habitus Orientation: Orientation [facility] Head: normal to inspection and normocephalic Mouth: oral mucosae normal Eyes Other: Pupils are PERRLA, EOMs are intact conjunctivae are normal Chest Other: , no discomfort with pain, no CVAT tenderness Resp Other: Increased work of effort, patient has substantial congestion that does not clear, patient has moist lung sounds throughout. Thick white productive phlegm with coughing. Cardio Other: Regular rate rhythm without any murmurs rubs or gallops. Patient has a history of aortic aneurysm, 4.7 cm at his last exam, currently at this time he is on yearly checks, just recently was evaluated and it is stable. Currently has no chest pain. GI Other: Soft nontender, nondistended. Skin Other: Warm, pink, cap refills within normal limits, pulses are present. Does have some minor skin tenting. Neuro Other: Cranial nerves are grossly intact. Patient brought in by wheelchair. Psych Other: Mental status is stable. Speech and movement is normal. Mood, affect, attitude, thought process and judgment are all within normal limits. <Constantino Conklin MD - Last Filed: 12/16/23 11:55> Narrative Exam Narrative: GENERAL: in no distress, not toxic not dyspneic HEAD: Normocephalic. EYES: Pupils equal round ENT: Mucous membranes moist. NECK: Trachea midline. CARDIOVASCULAR: Regular rate and rhythm RESPIRATORY: Patient is protecting airway. Does cough up greenish sputum. Speaking full sentences, coarse bilateral basilar lung sounds. GASTROINTESTINAL: Abdomen soft, non-tender EXTREMITIES: No gross deformities. BACK: No flank tenderness. NEURO: AOx4. SKIN: Warm and dry PSYCH: Not anxious, is cooperative Initial Vital Signs Initial Vital Signs: Vital Signs Temperature 98.4 F 11/23/23 14:05 Pulse Rate 82 11/23/23 14:05 Respiratory Rate 24 11/23/23 14:05 Blood Pressure 161/75 H 11/23/23 14:05 Pulse Oximetry 90 L 11/23/23 14:05 Oxygen Delivery Method Room Air 11/23/23 14:05 Scores <Romina Hernandez PA-C - Last Filed: 11/25/23 10:51> GCS Citation: GCS is 15 Wells' Criteria for PE Citation:: 0 Course <Romina Hernandez PA-C - Last Filed: 11/25/23 10:51> Orders Ordered: Discontinued Medications Acetaminophen (Acetaminophen 325 Mg Tablet) 650 mg PO Q6H PRN PRN Reason: Fever/Mild Pain (1-3) Atorvastatin Calcium (Atorvastatin 20 Mg Tablet) 20 mg PO DAILY [facility] Last Admin: 11/25/23 10:05 Dose: 20 mg Documented By: Admin: 11/24/23 08:55 Dose: 20 mg Documented By: CATHY Benzonatate (Benzonatate 100 Mg Capsule) 200 mg PO BID PRN PRN Reason: cough Last Admin: 11/24/23 08:55 Dose: 200 mg Documented By: Admin: 11/23/23 23:33 Dose: 200 mg Documented By: MP Bicalutamide (Bicalutamide 50 Mg Tablet) 50 mg PO DAILY [facility] Last Admin: 11/25/23 10:06 Dose: Not Given Documented By: Admin: 11/24/23 09:05 Dose: Not Given Documented By: CATYH Enoxaparin Sodium (Enoxaparin 40 Mg/0.4 Ml Syringe) 40 mg SUBCUT DAILY [facility] Last Admin: 11/25/23 10:04 Dose: 40 mg Documented By: Admin: 11/24/23 08:55 Dose: 40 mg Documented By: CATHY Guaifenesin (Guaifenesin Solution 100 Mg/5 Ml Udc) 100 mg PO Q4HR PRN PRN Reason: Cough Last Admin: 11/25/23 10:07 Dose: 100 mg Documented By: Admin: 11/25/23 03:44 Dose: 100 mg Documented By: CT Sodium Chloride (Normal Saline 0.9%) 1,000 mls @ 150 mls/hr IV CONT [facility] Last Infusion: 11/23/23 18:05 Dose: 0 mls/hr Documented By: Admin: 11/23/23 15:51 Dose: 150 mls/hr Documented By: MPO Levofloxacin (Levaquin) 500 mg in 100 mls @ 100 mls/hr IV Q24H [facility] Last Infusion: 11/23/23 19:46 Dose: Infused Documented By: Admin: 11/23/23 18:46 Dose: 100 mls/hr Documented By: TIFAFNY Dextrose/Sodium Chloride (Dextrose 5%-0.45% Ns) 1,000 mls @ 100 mls/hr IV CONT [facility] Last Admin: 11/24/23 16:05 Dose: 100 mls/hr Documented By: Infusion: 11/24/23 16:05 Dose: Infused Documented By: Infusion: 11/24/23 06:11 Dose: 100 mls/hr Documented By: Admin: 11/24/23 06:10 Dose: 100 mls/hr Documented By: Infusion: 11/24/23 04:46 Dose: Infused Documented By: Admin: 11/23/23 18:46 Dose: 100 mls/hr Documented By: TIFFANY Levofloxacin (Levaquin) 750 mg in 150 mls @ 100 mls/hr IV Q48H [facility]; Protocol Ipratropium [place] (Ipratropium 0.06% Nasal 15 Ml) 2 spray NASAL TID [facility] Last Admin: 11/25/23 10:06 Dose: Not Given Documented By: Admin: 11/24/23 21:24 Dose: Not Given Documented By: Admin: 11/24/23 16:35 Dose: Not Given Documented By: Admin: 11/24/23 08:55 Dose: Not Given Documented By: Admin: 11/23/23 21:54 Dose: Not Given Documented By: BRENNEN Metoprolol Tartrate (Metoprolol Tartrate 5 Mg/5 Ml Inj) 5 mg IV Q2HR PRN PRN Reason: Heart Rate- High Last Admin: 11/23/23 23:44 Dose: 5 mg Documented By: BRENNEN Naloxone HCl (Naloxone 0.4 Mg/Ml Vial) 0.2 mg IV Q2MIN PRN PRN Reason: Opiate Reversal Pantoprazole Sodium (Pantoprazole Dr 20 Mg Tablet) 20 mg PO 0700,2100 [facility] Last Admin: 11/25/23 10:05 Dose: 20 mg Documented By: Admin: 11/24/23 21:59 Dose: 20 mg Documented By: Admin: 11/24/23 06:30 Dose: 20 mg Documented By: Admin: 11/23/23 21:40 Dose: 20 mg Documented By: TIFFANY Prednisone (Prednisone 5 Mg Tablet) 5 mg PO DAILY [facility] Last Admin: 11/25/23 10:11 Dose: 5 mg Documented By: Admin: 11/24/23 08:55 Dose: 5 mg Documented By: CATHY Vital Signs Vital signs: Vital Signs - 8 hr 11/23/23 14:05 11/23/23 15:26 11/23/23 15:43 Temperature 98.4 F Pulse Rate 82 98 H Respiratory Rate 24 37 H Blood Pressure 161/75 H Pulse Oximetry 90 L 97 89 L Oxygen Delivery Method Room Air Oximask Oxygen Flow Rate 3 11/23/23 16:00 11/23/23 16:00 Temperature Pulse Rate 93 H Respiratory Rate 35 H Blood Pressure 192/95 H Pulse Oximetry 93 Oxygen Delivery Method Nasal Cannula Oxygen Flow Rate 2 <Constantino Conklin MD - Last Filed: 12/16/23 11:55> Orders Ordered: Discontinued Medications Acetaminophen (Acetaminophen 325 Mg Tablet) 650 mg PO Q6H PRN PRN Reason: Fever/Mild Pain (1-3) Atorvastatin Calcium (Atorvastatin 20 Mg Tablet) 20 mg PO DAILY [facility] Last Admin: 11/25/23 10:05 Dose: 20 mg Documented By: Admin: 11/24/23 08:55 Dose: 20 mg Documented By: CATHY Benzonatate (Benzonatate 100 Mg Capsule) 200 mg PO BID PRN PRN Reason: cough Last Admin: 11/24/23 08:55 Dose: 200 mg Documented By: Admin: 11/23/23 23:33 Dose: 200 mg Documented By: BRENNEN Bicalutamide (Bicalutamide 50 Mg Tablet) 50 mg PO DAILY [facility] Last Admin: 11/25/23 10:06 Dose: Not Given Documented By: Admin: 11/24/23 09:05 Dose: Not Given Documented By: CATHY Enoxaparin Sodium (Enoxaparin 40 Mg/0.4 Ml Syringe) 40 mg SUBCUT DAILY [facility] Last Admin: 11/25/23 10:04 Dose: 40 mg Documented By: Admin: 11/24/23 08:55 Dose: 40 mg Documented By: CATHY Guaifenesin (Guaifenesin Solution 100 Mg/5 Ml Udc) 100 mg PO Q4HR PRN PRN Reason: Cough Last Admin: 11/25/23 10:07 Dose: 100 mg Documented By: Admin: 11/25/23 03:44 Dose: 100 mg Documented By: CT Sodium Chloride (Normal Saline 0.9%) 1,000 mls @ 150 mls/hr IV CONT [facility] Last Infusion: 11/23/23 18:05 Dose: 0 mls/hr Documented By: Admin: 11/23/23 15:51 Dose: 150 mls/hr Documented By: RAHEL Levofloxacin (Levaquin) 500 mg in 100 mls @ 100 mls/hr IV Q24H [facility] Last Infusion: 11/23/23 19:46 Dose: Infused Documented By: Admin: 11/23/23 18:46 Dose: 100 mls/hr Documented By: TIFFANY Dextrose/Sodium Chloride (Dextrose 5%-0.45% Ns) 1,000 mls @ 100 mls/hr IV CONT [facility] Last Admin: 11/24/23 16:05 Dose: 100 mls/hr Documented By: Infusion: 11/24/23 16:05 Dose: Infused Documented By: Infusion: 11/24/23 06:11 Dose: 100 mls/hr Documented By: Admin: 11/24/23 06:10 Dose: 100 mls/hr Documented By: Infusion: 11/24/23 04:46 Dose: Infused Documented By: Admin: 11/23/23 18:46 Dose: 100 mls/hr Documented By: TIFFANY Levofloxacin (Levaquin) 750 mg in 150 mls @ 100 mls/hr IV Q48H [facility]; Protocol Ipratropium [place] (Ipratropium 0.06% Nasal 15 Ml) 2 spray NASAL TID [facility] Last Admin: 11/25/23 10:06 Dose: Not Given Documented By: Admin: 11/24/23 21:24 Dose: Not Given Documented By: Admin: 11/24/23 16:35 Dose: Not Given Documented By: Admin: 11/24/23 08:55 Dose: Not Given Documented By: Admin: 11/23/23 21:54 Dose: Not Given Documented By: BRENNEN Metoprolol Tartrate (Metoprolol Tartrate 5 Mg/5 Ml Inj) 5 mg IV Q2HR PRN PRN Reason: Heart Rate- High Last Admin: 11/23/23 23:44 Dose: 5 mg Documented By: BRENNEN Naloxone HCl (Naloxone 0.4 Mg/Ml Vial) 0.2 mg IV Q2MIN PRN PRN Reason: Opiate Reversal Pantoprazole Sodium (Pantoprazole Dr 20 Mg Tablet) 20 mg PO 0700,2100 [facility] Last Admin: 11/25/23 10:05 Dose: 20 mg Documented By: Admin: 11/24/23 21:59 Dose: 20 mg Documented By: Admin: 11/24/23 06:30 Dose: 20 mg Documented By: Admin: 11/23/23 21:40 Dose: 20 mg Documented By: TIFFANY Prednisone (Prednisone 5 Mg Tablet) 5 mg PO DAILY [facility] Last Admin: 11/25/23 10:11 Dose: 5 mg Documented By: Admin: 11/24/23 08:55 Dose: 5 mg Documented By: MM Vital Signs Vital signs: Vital Signs - 8 hr 11/23/23 14:05 11/23/23 15:26 11/23/23 15:43 Temperature 98.4 F Pulse Rate 82 98 H Respiratory Rate 24 37 H Blood Pressure 161/75 H Pulse Oximetry 90 L 97 89 L Oxygen Delivery Method Room Air Oximask Oxygen Flow Rate 3 11/23/23 16:00 11/23/23 16:00 Temperature Pulse Rate 93 H Respiratory Rate 35 H Blood Pressure 192/95 H Pulse Oximetry 93 Oxygen Delivery Method Nasal Cannula Oxygen Flow Rate 2 MDM - Recheck/Abnormal Lab/Rx <Romina Hernandez PA-C - Last Filed: 11/25/23 10:51> Lab Data 11/24/23 05:05 11/24/23 05:05 Labs: Lab Results 11/23/23 11/23/23 Range/Units 15:07 15:18 WBC 7.9 (4.5-11.0) X10^3/uL RBC 4.17 L (4.5-5.9) X10^6/uL Hgb 12.2 L (13.5-17.5) g/dL Hct 37.2 L (41-53) % MCV 89.2 (80-100) fL MCH 29.3 (26-34) PG MCHC 32.9 (30-36) % RDW 14.3 (11.6-14.8) % Plt Count 224 (150-400) X10^3/uL Neut % (Auto) 77.9 H (50-75) % Lymph % (Auto) 11.7 L (25-40) % [place] % (Auto) 8.3 (3-14) % Eos % (Auto) 1.5 L (2-4) % Baso % (Auto) 0.6 (0-2) % Neut # (Auto) 6100 (6751-9021) /uL Lymph # (Auto) 900 L (6868-6688) /uL [place] # (Auto) 700 (0-900) /uL Eos # (Auto) 100 (0-450) /uL Baso # (Auto) 0 (0-100) /uL Sodium 138 (137-145) mmol/L Potassium 4.4 (3.4-5.1) mmol/L Chloride 107 (98-107) mmol/L Carbon Dioxide 23 (22-32) mmol/L BUN 26 H (9-20) mg/dL Creatinine 1.20 (0.66-1.25) mg/dL Estimated GFR 59 L (>60) mL/min BUN/Creatinine Ratio 21.7 (6-22) Glucose 101 (80-110) mg/dL Lactate 1.8 (0.7-2.1) mmol/L Calcium 9.2 (8.4-10.2) mg/dL Total Bilirubin 1.0 (0.2-1.3) mg/dL AST 31 (17-59) IU/L ALT 17 (<50) IU/L Alkaline Phosphatase 59 (38-126) U/L Troponin I < 0.012 (0.01-0.034) ng/mL NT-Pro-B Natriuret Pep 819 H (<450) pg/mL Total Protein 6.7 (6.3-8.2) g/dL Albumin 3.9 (3.5-5.0) g/dL Globulin 2.8 (1.7-4.1) g/dL Albumin/Globulin Ratio 1.4 (1.0-2.8) Procalcitonin 0.072 (<0.5) ng/mL Chlamy pneumoniae PCR Not detected (Not Detect) Adenovirus (PCR) Not detected (Not Detect) B.parapertussis DNA PCR Not detected (Not Detecte) Coronavirus OC43 (PCR) Not detected (Not Detect) Coronavirus HKU1 (PCR) Not detected (Not Detect) Coronavirus 229E (PCR) Not detected (Not Detect) SARS-CoV-2 (PCR) Not detected (Not Detecte) Coronavirus NL63 (PCR) Not detected (Not Detect) Human Metapneumovir PCR Not detected (Not Detect) Influenza Type A (PCR) Not detected (Not Detect) Influenza Type B (PCR) Not detected (Not Detect) M. pneumoniae (PCR) Not detected (Not Detect) Parainfluenza 1 (PCR) Not detected (Not Detect) Parainfluenza 2 (PCR) Not detected (Not Detect) Parainfluenza 3 (PCR) Not detected (Not Detect) Parainfluenza 4 (PCR) Not detected (Not Detect) RSV (PCR) Not detected (Not Detect) Entero/Rhino (PCR) Detected H (Not Detect) ECG Data Interpretation: Sinus rhythm 84 beats per minute AL interval 152 milliseconds QRS interval 94 milliseconds QT/QTC 372/[address] elevation, no ST depression No signs symptoms of acute VA EKG is normal sinus rhythm rate and free of any signs of ischemia or ectopy. No ST segmental elevation or depression. No T wave inversions ED MDM Narrative Medical decision making narrative: Patient is a very pleasant 88-year-old male brought to the emergency room department by his after being seen evaluated in the urgent care. Patient brought in for assessment nonstop coughing with productive white phlegm. Patient has a hiatal hernia. Underwent anesthesia yesterday for further evaluation with upcoming surgical intervention planned. Patient tolerated the procedure well yesterday, however since the procedure he has been having nonstop incessant coughing with white phlegm. He was seen in the urgent care was seen and evaluated had a viral panel that was negative for any acute findings his COVID and influenza were negative. Was prescribed Tessalon Perles and inhaler. However, his or soon-to-be was concerned about him to the emergency department to be further evaluated. The patient was found to be hypoxic, not tachycardic, not tachypneic. However patient is coughing incessantly, white thick sputum, his lung sounds are concerning for possible aspiration pneumonia. The patient is requiring oxygen supplementation to keep his saturations in the low 90s. Currently at this time concern for aspiration pneumonia and possible need for admission. Sepsis workup is started. Patient will be transferred from the step-down unit over to the main ED. Workup as below. IV CBC CMP Lactate Procalcitonin Troponin BNP EKG Chest x-ray Respiratory panel Normal saline Patient had testing in the urgent Care negative for COVID flu to other viral tests which were also negative. Differential diagnosis; heart failure, viral infection, aspiration pneumonia, electrolyte imbalance, side effects associated with anesthesia. <Constantino Conklin MD - Last Filed: 12/16/23 11:55> Lab Data Labs: Lab Results 11/23/23 11/23/23 Range/Units 15:07 15:18 WBC 7.9 (4.5-11.0) X10^3/uL RBC 4.17 L (4.5-5.9) X10^6/uL Hgb 12.2 L (13.5-17.5) g/dL Hct 37.2 L (41-53) % MCV 89.2 (80-100) fL MCH 29.3 (26-34) PG MCHC 32.9 (30-36) % RDW 14.3 (11.6-14.8) % Plt Count 224 (150-400) X10^3/uL Neut % (Auto) 77.9 H (50-75) % Lymph % (Auto) 11.7 L (25-40) % [place] % (Auto) 8.3 (3-14) % Eos % (Auto) 1.5 L (2-4) % Baso % (Auto) 0.6 (0-2) % Neut # (Auto) 6100 (2241-7494) /uL Lymph # (Auto) 900 L (0918-7675) /uL [place] # (Auto) 700 (0-900) /uL Eos # (Auto) 100 (0-450) /uL Baso # (Auto) 0 (0-100) /uL Sodium 138 (137-145) mmol/L Potassium 4.4 (3.4-5.1) mmol/L Chloride 107 (98-107) mmol/L Carbon Dioxide 23 (22-32) mmol/L BUN 26 H (9-20) mg/dL Creatinine 1.20 (0.66-1.25) mg/dL Estimated GFR 59 L (>60) mL/min BUN/Creatinine Ratio 21.7 (6-22) Glucose 101 (80-110) mg/dL Lactate 1.8 (0.7-2.1) mmol/L Calcium 9.2 (8.4-10.2) mg/dL Total Bilirubin 1.0 (0.2-1.3) mg/dL AST 31 (17-59) IU/L ALT 17 (<50) IU/L Alkaline Phosphatase 59 (38-126) U/L Troponin I < 0.012 (0.01-0.034) ng/mL NT-Pro-B Natriuret Pep 819 H (<450) pg/mL Total Protein 6.7 (6.3-8.2) g/dL Albumin 3.9 (3.5-5.0) g/dL Globulin 2.8 (1.7-4.1) g/dL Albumin/Globulin Ratio 1.4 (1.0-2.8) Procalcitonin 0.072 (<0.5) ng/mL Chlamy pneumoniae PCR Not detected (Not Detect) Adenovirus (PCR) Not detected (Not Detect) B.parapertussis DNA PCR Not detected (Not Detecte) Coronavirus OC43 (PCR) Not detected (Not Detect) Coronavirus HKU1 (PCR) Not detected (Not Detect) Coronavirus 229E (PCR) Not detected (Not Detect) SARS-CoV-2 (PCR) Not detected (Not Detecte) Coronavirus NL63 (PCR) Not detected (Not Detect) Human Metapneumovir PCR Not detected (Not Detect) Influenza Type A (PCR) Not detected (Not Detect) Influenza Type B (PCR) Not detected (Not Detect) M. pneumoniae (PCR) Not detected (Not Detect) Parainfluenza 1 (PCR) Not detected (Not Detect) Parainfluenza 2 (PCR) Not detected (Not Detect) Parainfluenza 3 (PCR) Not detected (Not Detect) Parainfluenza 4 (PCR) Not detected (Not Detect) RSV (PCR) Not detected (Not Detect) Entero/Rhino (PCR) Detected H (Not Detect) MDM Narrative Medical decision making narrative: Patient is a very pleasant 88-year-old male brought to the emergency room department by his after being seen evaluated in the urgent care. Patient brought in for assessment nonstop coughing with productive white phlegm. Patient has a hiatal hernia. Underwent anesthesia yesterday for further evaluation with upcoming surgical intervention planned. Patient tolerated the procedure well yesterday, however since the procedure he has been having nonstop incessant coughing with white phlegm. He was seen in the urgent care was seen and evaluated had a viral panel that was negative for any acute findings his COVID and influenza were negative. Was prescribed Tessalon Perles and inhaler. However, his or soon-to-be was concerned about him to the emergency department to be further evaluated. The patient was found to be hypoxic, not tachycardic, not tachypneic. However patient is coughing incessantly, white thick sputum, his lung sounds are concerning for possible aspiration pneumonia. The patient is requiring oxygen supplementation to keep his saturations in the low 90s. Currently at this time concern for aspiration pneumonia and possible need for admission. Sepsis workup is started. Patient will be transferred from the step-down unit over to the main ED. Workup as below. IV CBC WBC 7.9 hemoglobin 12.2 CMP sodium 138 potassium 4.4 Lactate 1.8 Procalcitonin 0.072 Troponin less than 0.012 EKG normal sinus rhythm normal EKG rate 84 Chest x-ray no acute finding Respiratory panel positive rhinovirus Normal saline Patient had testing in the urgent Care negative for COVID flu to other viral tests which were also negative. Differential diagnosis; heart failure, viral infection, aspiration pneumonia, electrolyte imbalance, side effects associated with anesthesia. 3:[address] Conklin: Patient is in main emergency department now. He was in fast track. Supplemental oxygen and solar energy advisor placed. Laboratory studies imaging studies pending. Pulmonary consult will be needed possibly. Patient in no distress at this time. Has greenish sputum that he is coughing up. They do understand they will be admitted or transferred. Patient doing much better with nasal cannula 4:00 p.m.. Spoke with General surgery, Dr. Sanders, his surgeon, nothing to add to his case. Nothing unusual about the procedure yesterday. No indication to transfer patient. 5:[address] Wen, hospitalist here, who will admit patient Appropriate for admission for supplemental oxygen hypoxia. Patient and family agree. Hospitalist agrees for admit. Discharge Plan Departure Patient Disposition: Admitted As Inpatient Clinical Impression: Hypoxia, Rhinovirus infection Admit Date/Time: 11/23/23 17:17 Admit Provider: Sanjay Wen V ED Sign-out <Romina Hernandez PA-C - Last Filed: 11/25/23 10:51> Sign Out Provider Sign Out Attestation: Sign out to Dr. Conklin <Constantino Conklin MD - Last Filed: 12/16/23 11:55> Cosign ED Attending Cosignature Attestation: I was immediately available in the department for consultation. ?This documentation has been reviewed and I agree with assessment and plan. Supervised by Constantino Conklin MD
--- NOTE | 2023-11-23 14:44 | DI.RAD.S_ITS ---
PROCEDURE: XR CHEST 1V INDICATIONS: cough , sob, hypoxia TECHNIQUE: One view of the chest was acquired. COMPARISON: [facility], CT, CT CHEST WO CON, 08/04/2022, 11:41. [facility] ([place]), CR, XR CHEST 2V, 08/12/2023, 10:40. [facility] ([place]), CR, XR CHEST 2V, 07/16/2022, 14:41. FINDINGS: Surgical changes and devices: None. Lungs and pleura: Lungs are clear. No pleural effusions or pneumothorax. Mediastinum: Aortic arch calcifications. Moderate hiatal hernia. Right hemidiaphragmatic eventration. Mediastinal contours otherwise appear normal. Heart size is normal. Bones and chest wall: Diffuse osseous demineralization. Moderate bilateral glenohumeral osteoarthritis. No suspicious bony lesions. Overlying soft tissues appear unremarkable. IMPRESSION: No acute cardiothoracic process. Dictated by: Daniel Parks M.D. on 11/23/2023 at 16:08 Approved by: Daniel Parks M.D. on 11/23/2023 at 16:10
--- NOTE | 2023-11-23 15:21 | EKG_ITS ---
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
[2023-11-23 15:39] LABS: Lactate (Lactic Acid) 1.8 mmol/L (0.7-2.1)
[2023-11-23 15:42] LABS: Add Manual Diff / Slide Review NO; Basophils Absolute Auto 0 /uL (0-100); Basophils Percent Auto 0.6 % (0-2); Eosinophils Absolute Auto 100 /uL (0-450); Eosinophils Percent Auto 1.5 % (2-4); Hematocrit 37.2 % (41-53); Hemoglobin 12.2 g/dL (13.5-17.5); Lymphocytes Absolute Auto 900 /uL (1100-4500); Lymphocytes Percent Auto 11.7 % (25-40); Mean Corpuscular HGB Conc 32.9 % (30-36); Mean Corpuscular Hemoglobin 29.3 PG (26-34); Mean Corpuscular Volume 89.2 fL (80-100); Monocytes Absolute Auto 700 /uL (0-900); Monocytes Percent Auto 8.3 % (3-14); Neutrophils Absolute Auto 6100 /uL (1500-7000); Neutrophils Percent Auto 77.9 % (50-75); Platelet Count 224 X10^3/uL (150-400); Red Blood Cell Count 4.17 X10^6/uL (4.5-5.9); Red Cell Distribution Width 14.3 % (11.6-14.8); White Blood Cell Count 7.9 X10^3/uL (4.5-11.0)
[2023-11-23 15:47] LABS: Alanine Aminotransferase 17 IU/L (<50); Albumin 3.9 g/dL (3.5-5.0); Albumin Globulin Ratio 1.4 (1.0-2.8); Alkaline Phosphatase 59 U/L (38-126); Aspartate Aminotransferase 31 IU/L (17-59); BUN Creatinine Ratio 21.7 (6-22); Blood Urea Nitrogen 26 mg/dL (9-20); Calcium 9.2 mg/dL (8.4-10.2); Carbon Dioxide 23 mmol/L (22-32); Chloride 107 mmol/L (98-107); Estimated Glomerular Filt Rate 59 mL/min (>60); Globulin 2.8 g/dL (1.7-4.1); Glucose 101 mg/dL (80-110); HEMOLYSIS 49 (0-50); Potassium 4.4 mmol/L (3.4-5.1); Sodium 138 mmol/L (137-145); Total Protein 6.7 g/dL (6.3-8.2)
[2023-11-23] MEDS: SODIUM CHLORIDE 0.9% 1,000 ML 150 ML IV (15:51)
[2023-11-23 15:59] LABS: NT-proBNP (BNP-Adult 18+) 819 pg/mL (<450); Troponin I < 0.012 ng/mL (0.01-0.034)
[2023-11-23 16:04] LABS: Procalcitonin 0.072 ng/mL (<0.5)
[2023-11-23 16:29] LABS: Adenovirus Not Detected (Not Detect); B. parapertussis Not Detected (Not Detecte); Bordetella pertussis Not Detected (Not Detect); Chlamydophila pneumoniae Not Detected (Not Detect); Coronavirus 229E Not Detected (Not Detect); Coronavirus HKU1 Not Detected (Not Detect); Coronavirus NL 63 Not Detected (Not Detect); Coronavirus OC43 Not Detected (Not Detect); Human Metapneumovirus Not Detected (Not Detect); Human Rhinovirus/Enterovirus Detected (Not Detect); Influenza A Not Detected (Not Detect); Influenza B Not Detected (Not Detect); Mycoplasma pneumoniae Not Detected (Not Detect); Parainfluenza Virus 1 Not Detected (Not Detect); Parainfluenza Virus 2 Not Detected (Not Detect); Parainfluenza Virus 3 Not Detected (Not Detect); Parainfluenza Virus 4 Not Detected (Not Detect); Respiratory Syncytial Virus Not Detected (Not Detect); SARS- CoV-2 Not Detected (Not Detecte)
--- NOTE | 2023-11-23 17:42 | PM.HP.1 ---
History of Present Illness History of Present Illness Date Patient Seen: 11/23/23 Time Patient Seen: 17:15 Date of Onset of Symptoms: 11/23/23 Chief complaint: Cough Narrative: 88-year-old man under the primary care of Dr. Romina Sigala underwent upper endoscopy yesterday for evaluation of a large hiatal hernia as part of a preoperative evaluation without incident. He woke up today feeling as if he had a cold, with cough and malaise as, with onset of increased shortness of breath around 11:00 a.m.. He initially presented to urgent care and was directed to the emergency department where he was evaluated and found to be positive for rhino virus, coded, flu and RSV negative. He was found to be hypoxic the oxygen saturations 84% on room air and is admitted for further management and evaluation. He actually was planning to get tomorrow to his fijuan m Soton at bedside today. He is weak but in good spirits, and in fact recites a irma poem to her today while being interviewed in the emergency department. [facility] Medical History Dyspepsia Lower extremity neuropathy Hypothyroid Left knee pain Left knee pain Hearing loss associated with syndrome of both ears Preventative health care Post zoster neuralgia Social History Smoking Status: Never smoker additional social history: Has new girlfriend Meds Home Medications and Allergies Home Medications Medication Instructions Recorded Confirmed Type omeprazole magnesium 20 mg 20 mg PO BID #60 tabs 03/22/22 11/23/23 Rx tablet,delayed release (Prilosec OTC) tadalafil 20 mg tablet 20 mg PO DAILY PRN sexual activity 05/16/23 11/23/23 Rx #40 tabs atorvastatin 20 mg tablet 20 mg PO DAILY 06/09/23 11/23/23 History bicalutamide 50 mg tablet 50 mg PO DAILY 06/09/23 11/23/23 History prednisone 5 mg tablet 5 mg PO QAM 06/09/23 11/23/23 History furosemide 20 mg tablet 20 mg PO QAM for fluid overload. 10/20/23 11/23/23 Rx check with before stopping #30 tabs benzonatate 200 mg capsule 200 mg PO BID PRN cough #28 caps 11/23/23 11/23/23 Rx ipratropium bromide 42 mcg (0.06 2 spray intranasal TID 4 days #15 11/23/23 11/23/23 Rx %) nasal spray mL Allergies Allergy/AdvReac Type Severity Reaction Status Date / Time No Known Drug Allergies Allergy Verified 11/17/23 09:39 Review of Systems Review of Systems ROS: Yes All systems reviewed with the patient and are negative except as otherwise documented Exam Vital Signs (past 8 hours): - 11/23/23 14:05 11/23/23 15:26 11/23/23 15:43 Temperature 98.4 F Pulse Rate 82 98 H Respiratory Rate 24 37 H Blood Pressure 161/75 H Pulse Oximetry 90 L 97 89 L Oxygen Delivery Method Room Air Oximask Oxygen Flow Rate 3 11/23/23 16:00 11/23/23 16:00 11/23/23 16:30 Temperature Pulse Rate 93 H 97 H Respiratory Rate 35 H 28 H Blood Pressure 192/95 H Pulse Oximetry 93 94 Oxygen Delivery Method Nasal Cannula Oxygen Flow Rate 2 11/23/23 16:54 11/23/23 16:54 11/23/23 17:00 Temperature Pulse Rate 97 H 91 H Respiratory Rate 31 H 29 H Blood Pressure 139/90 Pulse Oximetry 95 94 Oxygen Delivery Method Oxygen Flow Rate Oxygen Delivery Method Nasal Cannula Oxygen Flow Rate 2 Narrative Exam Narrative: GENERAL: This is a well-nourished, well-developed patient, appears fatigued, nasal cannula oxygen at 2L/min, SaO2 94%, pleasant HEAD: Atraumatic. Normocephalic. No temporal or scalp tenderness. EYES: Pupils equal round and reactive. Extraocular motions intact. No scleral icterus. No injection or drainage. ENT: Mucous membranes pink and moist. NECK: Supple, nontender, no meningeal signs. CARDIOVASCULAR: Regular rate and rhythm without murmurs, gallops, or rubs. RESPIRATORY: Bilateral lower lobe rales, bilateral coarse rhonchi. GASTROINTESTINAL: Abdomen soft, non-tender, nondistended. EXTREMITIES: 1+ edema. NEUROLOGIC: Alert, oriented, speech fluent, full upper and lower motor strength, no focal deficits evident. DERMATOLOGIC: No rashes or skin lesions. Objective Imaging Chest x-ray: My impression: left basilar infiltrate Radiologist's impression: No acute cardiothoracic process. Labs 11/23/23 15:07 11/23/23 15:07 Labs: Laboratory Results - last 24 hr 11/23/23 11/23/23 15:07 15:18 WBC 7.9 RBC 4.17 L Hgb 12.2 L Hct 37.2 L MCV 89.2 MCH 29.3 MCHC 32.9 RDW 14.3 Plt Count 224 Neut % (Auto) 77.9 H Lymph % (Auto) 11.7 L [place] % (Auto) 8.3 Eos % (Auto) 1.5 L Baso % (Auto) 0.6 Neut # (Auto) 6100 Lymph # (Auto) 900 L [place] # (Auto) 700 Eos # (Auto) 100 Baso # (Auto) 0 Sodium 138 Potassium 4.4 Chloride 107 Carbon Dioxide 23 BUN 26 H Creatinine 1.20 Estimated GFR 59 L BUN/Creatinine Ratio 21.7 Glucose 101 Lactate 1.8 Calcium 9.2 Total Bilirubin 1.0 AST 31 ALT 17 Alkaline Phosphatase 59 Troponin I < 0.012 NT-Pro-B Natriuret Pep 819 H Total Protein 6.7 Albumin 3.9 Globulin 2.8 Albumin/Globulin Ratio 1.4 Procalcitonin 0.072 Chlamy pneumoniae PCR Not detected Adenovirus (PCR) Not detected B.parapertussis DNA PCR Not detected Coronavirus OC43 (PCR) Not detected Coronavirus HKU1 (PCR) Not detected Coronavirus 229E (PCR) Not detected SARS-CoV-2 (PCR) Not detected Coronavirus NL63 (PCR) Not detected Human Metapneumovir PCR Not detected Influenza Type A (PCR) Not detected Influenza Type B (PCR) Not detected M. pneumoniae (PCR) Not detected Parainfluenza 1 (PCR) Not detected Parainfluenza 2 (PCR) Not detected Parainfluenza 3 (PCR) Not detected Parainfluenza 4 (PCR) Not detected RSV (PCR) Not detected Entero/Rhino (PCR) Detected H Assessment & Plan Assessment & Plan narrative: 1. Aspiration pneumonia. Possibly due to aspirated oral secretions following upper endoscopy yesterday. Treat with IV Levaquin. Monitor clinical status and response. 2. Acute hypoxemic respiratory failure due to 1. Treat with supplemental oxygen and monitor. 3. Metastatic prostate cancer. Continue routine medication. 4. Immunocompromised due to 3. 5. Abdominal aortic aneurysm. Measuring 5.8 cm by ultrasound 07/29/2023. On observation apparently per notes. 6. GERD with hiatal hernia. Ongoing management per surgery. 7. Chronic kidney disease stage IIIA. 8. DVT prophylaxis. Treat with Lovenox. 9. Code status: Full code. The patient states that he has advanced directives in the event of medical futility. Plan: -inpatient admission -Levaquin 500 mg IV daily -aspiration precautions, advance diet pending swallowing screen -IV hydration -supplemental oxygen The patient will require at least 2 midnights of inpatient level care. Time-Based Coding :: [TOTAL MINUTES] spent with patient and on the chart (including review of chart, obtaining history, exam, reviewing outside data, placing orders, documenting exam and treatment plan, and counseling patient) on [DATE]. Quality MIPS - Admit I confirm the patient?s Advance Care Plan is present, Code status is documented, Surrogate decision maker is in patient?s record [If Yes, STOP here]: Yes [facility] - Meds 'Current medications' to include all prescriptions, [id number] products, herbals, cannabis/cannabidiol products, and vitamin/mineral/dietary (nutritional) supplements. I have utilized all available resources to obtain, update, or review the patient?s current medications. [If Yes, STOP here]: Yes [facility] Charge Codes Initial inpatient/observation care: 81918 Lab Results Common Lab Results- Last: White Blood Count 7.9 X10^3/uL (4.5-11.0) 11/23/23 Red Blood Count 4.17 X10^6/uL (4.5-5.9) L 11/23/23 Hemoglobin 12.2 g/dL (13.5-17.5) L 11/23/23 Hematocrit 37.2 % (41-53) L 11/23/23 Mean Corpuscular Volume 89.2 fL (80-100) 11/23/23 Mean Corpuscular Hemoglobin 29.3 PG (26-34) 11/23/23 Mean Corpuscular Hemoglobin Concent 32.9 % (30-36) 11/23/23 Red Cell Distribution Width 14.3 % (11.6-14.8) 11/23/23 Platelet Count 224 X10^3/uL (150-400) 11/23/23 Neutrophils (%) (Auto) 77.9 % (50-75) H 11/23/23 Lymphocytes (%) (Auto) 11.7 % (25-40) L 11/23/23 Monocytes (%) (Auto) 8.3 % (3-14) 11/23/23 Eosinophils (%) (Auto) 1.5 % (2-4) L 11/23/23 Basophils (%) (Auto) 0.6 % (0-2) 11/23/23 Neutrophils # (Auto) 6100 /uL (3127-2342) 11/23/23 Sodium Level 138 mmol/L (137-145) 11/23/23 Potassium Level 4.4 mmol/L (3.4-5.1) 11/23/23 Chloride Level 107 mmol/L (98-107) 11/23/23 Carbon Dioxide Level 23 mmol/L (22-32) 11/23/23 Blood Urea Nitrogen 26 mg/dL (9-20) H 11/23/23 Creatinine 1.20 mg/dL (0.66-1.25) 11/23/23 Estimat Glomerular Filtration Rate 59 mL/min (>60) L 11/23/23 BUN/Creatinine Ratio 21.7 (6-22) 11/23/23 Glucose Level 101 mg/dL (80-110) 11/23/23 Calcium Level 9.2 mg/dL (8.4-10.2) 11/23/23 Total Bilirubin 1.0 mg/dL (0.2-1.3) 11/23/23 Aspartate Amino Transf (AST/SGOT) 31 IU/L (17-59) 11/23/23 Alanine Aminotransferase (ALT/SGPT) 17 IU/L (<50) 11/23/23 Alkaline Phosphatase 59 U/L (38-126) 11/23/23 Total Protein 6.7 g/dL (6.3-8.2) 11/23/23 Albumin 3.9 g/dL (3.5-5.0) 11/23/23 Globulin 2.8 g/dL (1.7-4.1) 11/23/23 Albumin/Globulin Ratio 1.4 (1.0-2.8) 11/23/23 Triglycerides Level 107 mg/dL (35-150) 06/09/23 Cholesterol Level 140 mg/dL (140-199) 06/09/23 HDL Cholesterol 47 mg/dL (40-60) 06/09/23 LDL Cholesterol, Calculated 72 mg/dL (<100) 06/09/23 Thyroid Stimulating Hormone (TSH) 4.22 uIU/mL (0.47-4.68) 06/09/23 Alanine Aminotransferase (ALT/SGPT) 17 IU/L (<50) 11/23/23 Prostate Specific Antigen < 0.064 ng/mL (0.10-4.00) L 11/08/23 Aspartate Amino Transf (AST/SGOT) 31 IU/L (17-59) 11/23/23 Blood Urea Nitrogen 26 mg/dL (9-20) H 11/23/23 Creatinine 1.20 mg/dL (0.66-1.25) 11/23/23 Estimat Glomerular Filtration Rate 59 mL/min (>60) L 11/23/23 BUN/Creatinine Ratio 21.7 (6-22) 11/23/23 Cholesterol Level 140 mg/dL (140-199) 06/09/23 Hemoglobin 12.2 g/dL (13.5-17.5) L 11/23/23 Red Blood Count 4.17 X10^6/uL (4.5-5.9) L 11/23/23 Hematocrit 37.2 % (41-53) L 11/23/23 Platelet Count 224 X10^3/uL (150-400) 11/23/23 Prostate Specific Antigen < 0.064 ng/mL (0.10-4.00) L 11/08/23 Prostate Specific Antigen Screen 15.9 ng/mL (0.1-4.0) H 11/08/22
[2023-11-23] MEDS: levoFLOXacin 500 MG/100 ML PIGGYBACK 100 MG IV (18:46)
[2023-11-23] MEDS: DEXTROSE 5%-0.45% NS 1,000 ML 100 ML IV (18:46)
[2023-11-23] MEDS: PANTOPRAZOLE DR 20 MG TABLET PO (21:40)
--- NOTE | 2023-11-23 21:42 | PC.NURSE ---
patient dropped protonix tab in bed/floor an additional tab had to be removed from pix
--- NOTE | 2023-11-23 22:57 | EKG_ITS ---
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
[2023-11-23] MEDS: BENZONATATE 100 MG CAPSULE 200 MG PO (23:33)
[2023-11-23] MEDS: METOPROLOL TARTRATE 5 MG/5 ML INJ IV (23:44)
--- NOTE | 2023-11-23 23:53 | PC.NURSE ---
Dr. Hawk ordered to give Metoprolol IVP 5 mg. with B/P of 108/63. @ 2344 5 mg. of Metoprolol IVP admin., rechecked his blood pressure 111/66 MAP 74 & HR. 103. Patient denies any chest pain & heart palpitation. Coughing more now 200 mg of Tessalon Perles admin. with apple sauce. Will monitor.
[2023-11-24] VITALS (7 sets, daily range): BP systolic 100–125; BP diastolic 53–65; PULSE 60–146; RESP 12–20; TEMP 36.3–36.6; O2SAT 92–97
[2023-11-24 05:28] LABS: Add Manual Diff / Slide Review NO; Basophils Absolute Auto 0 /uL (0-100); Basophils Percent Auto 0.2 % (0-2); Eosinophils Absolute Auto 0 /uL (0-450); Eosinophils Percent Auto 0.2 % (2-4); Hematocrit 32.9 % (41-53); Hemoglobin 10.8 g/dL (13.5-17.5); Lymphocytes Absolute Auto 1200 /uL (1100-4500); Lymphocytes Percent Auto 8.6 % (25-40); Mean Corpuscular Volume 87.8 fL (80-100); Monocytes Absolute Auto 1000 /uL (0-900); Monocytes Percent Auto 6.8 % (3-14); Neutrophils Absolute Auto 11800 /uL (1500-7000); Neutrophils Percent Auto 84.2 % (50-75); Platelet Count 185 X10^3/uL (150-400); Red Blood Cell Count 3.74 X10^6/uL (4.5-5.9); Red Cell Distribution Width 14.2 % (11.6-14.8)
[2023-11-24 05:36] LABS: BUN Creatinine Ratio 22.8 (6-22); Blood Urea Nitrogen 28 mg/dL (9-20); Calcium 8.5 mg/dL (8.4-10.2); Carbon Dioxide 24 mmol/L (22-32); Chloride 103 mmol/L (98-107); Estimated Glomerular Filt Rate 57 mL/min (>60); Glucose 124 mg/dL (80-110); HEMOLYSIS < 15 (0-50); Potassium 3.7 mmol/L (3.4-5.1); Sodium 132 mmol/L (137-145)
[2023-11-24] MEDS: DEXTROSE 5%-0.45% NS 1,000 ML 100 ML IV ×2 (06:10→16:05)
[2023-11-24] MEDS: PANTOPRAZOLE DR 20 MG TABLET PO ×2 (06:30→21:59)
[2023-11-24] MEDS: BENZONATATE 100 MG CAPSULE 200 MG PO (08:55)
[2023-11-24] MEDS: predniSONE 5 MG TABLET PO (08:55)
[2023-11-24] MEDS: ENOXAPARIN 40 MG/0.4 ML SYRINGE SUBCUT (08:55)
[2023-11-24] MEDS: ATORVASTATIN 20 MG TABLET PO (08:55)
--- NOTE | 2023-11-24 10:38 | P.PN_ITS ---
Subjective Subjective Interval history: From H&P: 88-year-old man under the primary care of Dr. Romina Sigala underwent upper endoscopy yesterday for evaluation of a large hiatal hernia as part of a preoperative evaluation without incident. He woke up today feeling as if he had a cold, with cough and malaise as, with onset of increased shortness of breath around 11:00 a.m.. He initially presented to urgent care and was directed to the emergency department where he was evaluated and found to be positive for rhino virus, coded, flu and RSV negative. He was found to be hypoxic the oxygen saturations 84% on room air and is admitted for further management and evaluation. He actually was planning to get tomorrow to his fijuan m Soton at bedside today. He is weak but in good spirits, and in fact recites a irma poem to her today while being interviewed in the emergency department. S: He feels a little bit better today. Saturations of 88 89% on room air. He was not having any respiratory distress or tachypnea. He was coughing intermittently. He was positive for rhino virus on PCR. Exam Vital Signs (past 8 hours): - 11/24/23 04:00 11/24/23 07:45 Temperature 97.4 F L Pulse Rate 70 Respiratory Rate 20 Blood Pressure 100/53 L Pulse Oximetry 92 92 Oxygen Delivery Method Nasal Cannula Oxygen Flow Rate 3 3 Fraction of Inspired Oxygen 32 Fraction of Inspired Oxygen 32 SaO2/FiO2 Ratio 287 Oxygen Delivery Method Nasal Cannula Oxygen Flow Rate 3 Narrative Exam Narrative: NAD, alert and oriented. Fluent speech. Lungs are clear, normal rate and effort. No discernible wheezing. Heart is regular, no murmur gallop or rub. Abdomen is soft, non distended. Extremities are free of edema. He was an abdominal binder in place which he wears chronically for a spinal compression fracture from 2021. Objective ECG Impression: Normal sinus rhythm Imaging Chest x-ray: My impression: left basilar infiltrate Radiologist's impression: No acute cardiothoracic process. Labs 11/24/23 05:05 11/24/23 05:05 Labs: Laboratory Results - last 24 hr 11/23/23 11/23/23 11/24/23 15:07 15:18 05:05 WBC 7.9 14.0 H D RBC 4.17 L 3.74 L Hgb 12.2 L 10.8 L Hct 37.2 L 32.9 L MCV 89.2 87.8 MCH 29.3 29.0 MCHC 32.9 33.0 RDW 14.3 14.2 Plt Count 224 185 Neut % (Auto) 77.9 H 84.2 H Lymph % (Auto) 11.7 L 8.6 L [place] % (Auto) 8.3 6.8 Eos % (Auto) 1.5 L 0.2 L Baso % (Auto) 0.6 0.2 Neut # (Auto) 6100 86597 H Lymph # (Auto) 900 L 1200 [place] # (Auto) 700 1000 H Eos # (Auto) 100 0 Baso # (Auto) 0 0 Sodium 138 132 L Potassium 4.4 3.7 Chloride 107 103 Carbon Dioxide 23 24 BUN 26 H 28 H Creatinine 1.20 1.23 Estimated GFR 59 L 57 L BUN/Creatinine Ratio 21.7 22.8 H Glucose 101 124 H Lactate 1.8 Calcium 9.2 8.5 Total Bilirubin 1.0 AST 31 ALT 17 Alkaline Phosphatase 59 Troponin I < 0.012 NT-Pro-B Natriuret Pep 819 H Total Protein 6.7 Albumin 3.9 Globulin 2.8 Albumin/Globulin Ratio 1.4 Procalcitonin 0.072 Chlamy pneumoniae PCR Not detected Adenovirus (PCR) Not detected B.parapertussis DNA PCR Not detected Coronavirus OC43 (PCR) Not detected Coronavirus HKU1 (PCR) Not detected Coronavirus 229E (PCR) Not detected SARS-CoV-2 (PCR) Not detected Coronavirus NL63 (PCR) Not detected Human Metapneumovir PCR Not detected Influenza Type A (PCR) Not detected Influenza Type B (PCR) Not detected M. pneumoniae (PCR) Not detected Parainfluenza 1 (PCR) Not detected Parainfluenza 2 (PCR) Not detected Parainfluenza 3 (PCR) Not detected Parainfluenza 4 (PCR) Not detected RSV (PCR) Not detected Entero/Rhino (PCR) Detected H [facility] Medical History Dyspepsia Lower extremity neuropathy Hypothyroid Left knee pain Left knee pain Hearing loss associated with syndrome of both ears Preventative health care Post zoster neuralgia Social History household members: significant other Smoking Status: Never smoker alcohol intake: current additional social history: Has new girlfriend Assessment & Plan Assessment & Plan narrative: 1. Aspiration pneumonia. Possibly due to aspirated oral secretions following upper endoscopy 11/22. Treat with IV Levaquin. Monitor clinical status and response. 2. Acute hypoxemic respiratory failure due to 1. Treat with supplemental oxygen and monitor. 3. Metastatic prostate cancer. Continue routine medication. 4. Immunocompromised due to 3. 5. Abdominal aortic aneurysm. Measuring 5.8 cm by ultrasound 07/29/2023. On observation apparently per notes. 6. GERD with hiatal hernia. Ongoing management per surgery. 7. Chronic kidney disease stage IIIA. 8. Atrial fibrillation detected overnight, rate controlled. He denies a history of this. DVT prophylaxis. Treat with Lovenox. Code status: Full code. The patient states that he has advanced directives in the event of medical futility. Plan: -Levaquin 500 mg IV daily , continue. -aspiration precautions, advance diet pending swallowing eval by speech. -IV hydration with IVFs -supplemental oxygen, wean as able. -consideration of anticoagulation. -discuss with Dr. Sanders regarding her future surgical plans and which she would like to do with anticoagulation and alert her of his AAA. In addition there is a barium swallow scheduled for next week, see if she wants to delay this. The patient will require at least 2 midnights of inpatient level care. Time-Based Coding :: [TOTAL MINUTES] spent with patient and on the chart (including review of chart, obtaining history, exam, reviewing outside data, placing orders, documenting exam and treatment plan, and counseling patient) on [DATE]. Quality VTE Deep Vein Thrombosis/Pulmonary Embolism Present on Admission: No
--- NOTE | 2023-11-24 15:46 | ST.IPCSEOM ---
Visit Care Team Role Provider Type Romina Staley MD Primary Care Provider Physician Specialty: Family Practice Address: [address] [place] [address], [id number] Fax: Email: [email or web address] Teodoro Valentine MD Other Providers Physician Specialty: Internal Medicine Address: [address] [place] [address] Fax: Email: [email or web address] Constantino Conklin MD Emergency Provider Physician Referring Provider Specialty: Emergency Medicine Address: [address] [place] [address] Email: [email or web address] Attending Provider Physician Specialty: Internal Medicine Address: [address] [place] [address], [facility] Fax: Email: [email or web address] Sanjay Wen MD Admit Provider Physician Specialty: Internal Medicine Address: [address] [place] [address], [facility] Email: [email or web address] Current Diagnoses Pneumonitis due to inhalation of food and vomit (11/23/23) Past Medical History (Last Reviewed 11/24/23 @ 10:40 by Yaw Acevedo MD) Dyspepsia (Medical) 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) Hypothyroid (Medical) Left knee pain (Medical) Left knee pain (Medical) Lower extremity neuropathy (Medical) Post zoster neuralgia (Medical) Preventative health care (Medical) Speech-Language Pathology Swallow Evaluation CERTIFIED MEDICAL TRANSCRIPTIONIST Clinical Swallow Evaluation Start: 11/24/23 15:29 Freq: Status: Active Protocol: Document 11/24/23 15:29 SS (Rec: 11/24/23 15:45 SS [id number]) Clinical Swallow Evaluation Session Time Visit Start Time 13:45 Visit Stop Time 14:10 Total Visit Minutes 25 Visit Information Visit Number 1 Insurance Information Medicare Referral Referring Provider Dr. Yaw Acevedo Reason for Referral Aspiration pneumonia Setting Assessment Location Acute Care Visit Type Note Type Initial evaluation Next Note Type Next Note Type Treatment Note Patient Information Identification Type Name,Wristband History Pt is an 88-year-old male who was admitted to ED after he underwent upper endoscopy yesterday for evaluation of a large hiatal hernia. Per H&P on 11/23/23, He woke up today feeling as if he had a cold, with cough and malaise as, with onset of increased shortness of breath around 11: 00 a.m.. He initially presented to urgent care and was directed to the emergency department where he was evaluated and found to be positive for rhino virus, coded, flu and RSV negative. He was found to be hypoxic the oxygen saturations 84% on room air and is admitted for further management and evaluation. He was referred for CERTIFIED MEDICAL TRANSCRIPTIONIST assessment of swallowing function given aspiration pneumonia possibly due to aspirated oral secretions following upper endoscopy on 11/22. Subjective Observations RN reported single coughing incident with fruit this morning. No other overt s/sx of aspiration noted. Pt was sitting upright in bed upon CERTIFIED MEDICAL TRANSCRIPTIONIST arrival with Kenton brownlee , at bedside. He reports baseline difficulty wiht swallowing large pills, though no other swallowing difficulties. Additionally, he expressed increased production coughing with sputus since hospitalization. Reported by Patient/Caregiver Other Symptoms Difficulty swallowing pills, History of aspiration or pneumonia Current Diet Soft & Bite-sized (IDDSI 6) Baseline Feeding Method Independent in self-feeding The IDDSI Framework Protocol: IDDSI.1 Objective Assessment Mental Status Alert,Responsive,Cooperative Oral Integrity Thrush Dentition Missing teeth,Decay Lip Function Within normal limits Observation of Lips at Rest Symmetrical Pucker Within normal limits Lip Retraction Within normal limits Alternating Pucker/Lip Retraction Within normal limits Tongue Function Within normal limits Observations of Tongue at Rest Within normal limits Tongue Protrusion Within normal limits Tongue Retraction Within normal limits Tongue Lateralization Within normal limits Jaw Function Within normal limits Observation of Jaw at Rest Within normal limits Jaw Opening Within normal limits Jaw Closing Within normal limits Jaw Lateralization Within normal limits Jaw Protrusion Within normal limits Jaw Retraction Within normal limits Hard/Soft Palate Function Within normal limits Observations of Hard/Soft Palate Within normal limits Respiratory Sufficiency Mild impairment Comment OME WNL. Hospitalist notified of potential thrush. Food and Liquid Trials Position During Assessment Upright (90 degrees) Liquids Trialed Ice chips,Thin (IDDSI 0) Solid Trials Purred (IDDSI 4),Soft & Bite- sized (IDDSI 6),Regular (IDDSI 7) Administration Type Tea spoon,Cup single sip,Cup consecutive sips,Straw,Self- feeding Oral Impairment Within normal limits Oral Phase Comments Functional mastication with timely oral transit and complete oral clearance. Pharyngeal Impairment Mildly impaired Pharyngeal Phase Comments Pharyngeal swallow appears prompt. No overt s/sx of aspiration with provided consistencies. Pt completed consecutive sips of thin liquids via cup and straw without any concerns. Aspiration risk appears low. However, overt s/sx of aspiration noted this morning with fruit after which pt had a prolonged cough in attempts to clear. Fatigue/Endurance Endurance WNL [place] Swallow Protocol Yes Results Passed 3 oz water test. The IDDSI Framework Protocol: IDDSI.1 Findings Swallowing Function Within functional limits Severity of Swallow Impairment Within functional limits Prognosis Good Based on Cognitive status,Family support,Comorbidities,Duration of symptoms/severity Recommendations Instrumental Assessment No Swallowing Treatment No Frequency 1-2 times to ensure tolerance of diet level. Recommended Solids Soft & Bite-sized (IDDSI 6) Recommended Liquids Thin (IDDSI 0) Other Recommendations Recommend soft and bite sized texture diet given pt report of overt s/sx of aspiration morning as well as pt preference given report of fatigue with mastication. Plan to complete 1-2 treatment sessions to monitor tolerance of current diet level. RN and hospitalist notified of assessment results and recommendations. Safety Precautions/Swallowing 1 to 1 distant supervision, Recommendations Remain upright (90 degrees) during all oral intake,Slow rate; swallow between bites Medication Recommendations As Tolerated Discharge Recommendations Home Education Patient/Caregiver Education Described results of evaluation,Patient expressed understanding of evaluation
--- NOTE | 2023-11-24 17:25 | CM.DANOTE ---
DCP Assessment Note: Pt is a 88yo male, resident of [facility] is admitted for Pneumonitis, cough. Pt lives in a house with his fiancee on [facility]. It is reported that pt's son, León, also lives next door to him. Pt's Primary Care Provider is Dr. Romina Staley and insurance is Medicare and [facility]. Reviewed chart and team rounds for pt's medical status and initial discharge needs. DCP met w/patient at bedside; introduced self and role. Present in the room is pt's fiancee (they were supposed to get today, 11/24/23), Kenton Mallory (# [phone], email: [email or web address]). Patient was found in bed, very somnolent, agreed for this BOTANY TEACHER to continue assessment with his fiancee. Pt fiancee confirmed living situation and good support on the [place] with family and friends. Pt fiancee denied any other discharge needs at this time other than possible assistance with medical ferry pass at discharge. ST completed evaluation and recommended pt return home with supervision while eating. Plan: Anticipating discharge home with family when medically stable. CM team will follow closely for coordination of discharge plans and possible assistance with ferry pass. HI Santos Discharge Planning/Care Management CM Discharge Assessment Start: 11/24/23 17:10 Freq: Status: Active Protocol: Document 11/24/23 17:10 MW (Rec: 11/24/23 17:13 MW [id number]) Discharge Planning Assessment Assigned Nuclear Plant Construction Worker DEVON Pardo DPOA/Assigned Designee Name Zoltan Funes Contact Information [phone] Advance Directives? No History Provided By Significant Other,Medical Record Has Patient been admitted in last 30 No days? Prior Living Arrangements House Comment Patient lives on [facility]. Household Members significant other Type of transporation used prior to Drives own vehicle admit Independent with ADL's Yes Is patient alert and oriented? Yes Caregiver for Another No Patient/Family Preference Home with Home Health Barriers to Discharge No Discharge Plan Home Additional Comment Patient fiancee requesting ferry pass at discharge. If patient plan is home with home health No : Has signed face to face form been completed? If patient plan is SNF: Has PASSR been No completed? Whiteboard Updated in Patient Room with Yes name and ext. # of Nuclear Plant Construction Worker Comment [phone] Please Provide Date Initial DC 11/24/23 Assessment Was Performed Next Review Type Continued Stay Review
[2023-11-25] VITALS: BP 127/60; PULSE 66; RESP 18; O2SAT 95
[2023-11-25] MEDS: guaiFENesin Solution 100 MG/5 ML UDC PO ×2 (03:44→10:07)
[2023-11-25 04:27] VITALS: BP 151/79; PULSE 68; RESP 20; O2SAT 95
[2023-11-25 08:00] VITALS: BP 136/72; PULSE 64; RESP 15; TEMP 36.4; O2SAT 94
[2023-11-25] MEDS: ENOXAPARIN 40 MG/0.4 ML SYRINGE SUBCUT (10:04)
[2023-11-25] MEDS: PANTOPRAZOLE DR 20 MG TABLET PO (10:05)
[2023-11-25] MEDS: ATORVASTATIN 20 MG TABLET PO (10:05)
--- NOTE | 2023-11-25 10:06 | PM.DS.1 ---
History of Present Illness History of Present Illness Date Patient Seen: 11/25/23 Time Patient Seen: 08:10 Date of Onset of Symptoms: 11/23/23 Chief complaint: Cough Narrative: 88-year-old man under the primary care of Dr. Romina Sigala underwent upper endoscopy yesterday for evaluation of a large hiatal hernia as part of a preoperative evaluation without incident. He woke up today feeling as if he had a cold, with cough and malaise as, with onset of increased shortness of breath around 11:00 a.m.. He initially presented to urgent care and was directed to the emergency department where he was evaluated and found to be positive for rhino virus, coded, flu and RSV negative. He was found to be hypoxic the oxygen saturations 84% on room air and is admitted for further management and evaluation. He actually was planning to get tomorrow to his kem Soton at bedside today. He is weak but in good spirits, and in fact recites a irma poem to her today while being interviewed in the emergency department. Discharge Providers Provider Date of admission: 11/23/23 17:17 Discharge Date: 11/25/23 Primary care physician: Romina Staley MD Consults: 11/24/23 09:42 Consult to Speech Therapy Evaluate & Treat Comment: Physician Instructions: Evaluate and treat Discharge provider: Sanjay Wen MD Summary Hospital Course Discharge Diagnosis: 1. Aspiration pneumonia. 2. Acute hypoxemic respiratory failure due to 1. 3. Metastatic prostate cancer. 4. Immunocompromised due to 3. 5. Abdominal aortic aneurysm. 6. GERD with hiatal hernia. 7. Chronic kidney disease stage IIIA. 8. Atrial fibrillation detected on telemetry, rate controlled. Hospital Course: The patient was admitted and treated with ABX for presumed aspiration complicating his recent endoscopy. Supplemental oxygen was provided but the patient returned to normal baseline oxygen status and was feeling significantly better. He was incidentally noted to have an episode of atrial fibrillation discuss possible anticoagulation was advised, though further discussion will relate to surgical plans for repair of hiatal hernia and swallow next week possibly delayed due to this current presentation. Follow-up with Dr. Sanders. The patient has abdominal aortic aneurysm was followed up by vascular surgery and periodic intermittent up was advised without intervention at this time. No other issues arose. The patient plans to return home with upcoming nuptuals with his life partner planned in the near future. Status at Discharge Cognitive/behavioral status at discharge: oriented Functional status at discharge: independent ambulation Overall status at discharge: patient is back to baseline Time Spent with Patient Time spent: Greater than 30 minutes Exam Vital Signs (past 8 hours): - 11/25/23 04:27 11/25/23 08:00 Temperature 97.6 F Pulse Rate 68 64 Respiratory Rate 20 15 Blood Pressure 151/79 H 136/72 Pulse Oximetry 95 94 Oxygen Flow Rate 0 Fraction of Inspired Oxygen 32 SaO2/FiO2 Ratio 287 Oxygen Delivery Method Nasal Cannula Oxygen Flow Rate 0 Narrative Exam Narrative: NAD, alert and oriented. Fluent speech. Lungs are clear, normal rate and effort. No discernible wheezing. Heart is regular, no murmur gallop or rub. Abdomen is soft, non distended. Extremities are free of edema. He was an abdominal binder in place which he wears chronically for a spinal compression fracture from 2021. Objective Labs 11/24/23 05:05 11/24/23 05:05 [facility] Medical History Dyspepsia Lower extremity neuropathy Hypothyroid Left knee pain Left knee pain Hearing loss associated with syndrome of both ears Preventative health care Post zoster neuralgia Social History household members: significant other Smoking Status: Never smoker alcohol intake: current additional social history: Has new girlfriend Discharge Plan Discharge Plan Patient Disposition: Home Provider Discharge Comment: Followup with Romina Staley MD within 1 week Discharge orders & Medications Prescriptions: New prednisone 5 mg Tablet 5 mg PO DAILY Qty: 30 0RF guaifenesin 100 mg/5 mL Liquid 100 mg PO Q4HR PRN (Reason: Cough) Qty: 240 0RF levofloxacin 500 mg tablet 500 mg PO DAILY Qty: 5 0RF Continued benzonatate 200 mg capsule 200 mg PO BID PRN (Reason: cough) Qty: 28 0RF ipratropium bromide 42 mcg (0.06 %) spray,non-aerosol 2 spray intranasal TID 4 Days Qty: 15 0RF Rx Instructions: administer into each nostril tadalafil 20 mg tablet 20 mg PO DAILY PRN (Reason: sexual activity) Qty: 40 9RF Rx Instructions: administer approximately 30min before sexual activity; do not use more than 1 dose per 24hrs furosemide 20 mg tablet 20 mg PO QAM Qty: 30 1RF aspirin 81 mg Tablet,Delayed Release (Dr/Ec) 81 mg PO DAILY atorvastatin 20 mg tablet 20 mg PO DAILY omeprazole magnesium [Prilosec OTC] 20 mg tablet,delayed release (DR/EC) 20 mg PO BID Qty: 60 2RF Rx Instructions: Take 1 p.o. b.i.d. x2 weeks then decrease to 1 p.o. q.d. Follow up/Referrals: Romina Staley MD [Primary Care Provider] - Visit Report/Discharge Packet Instructions: How to Avoid a Cold or Flu, DI for Cough -- Adult, How to Prevent Falls, DI for Common Cold, Guaifenesin Stand Alone Forms: Patient Portal/API, Stroke Signs & Symptoms Discharge Data Primary Care Provider: Romina Staley Quality VTE Deep Vein Thrombosis/Pulmonary Embolism Present on Admission: No MIPS - Admit I confirm the patient?s Advance Care Plan is present, Code status is documented, Surrogate decision maker is in patient?s record [If Yes, STOP here]: Yes MIPS - Meds 'Current medications' to include all prescriptions, [id number] products, herbals, cannabis/cannabidiol products, and vitamin/mineral/dietary (nutritional) supplements. I have utilized all available resources to obtain, update, or review the patient?s current medications. [If Yes, STOP here]: Yes MIPS - DC The patient has a history of heart transplant or Left Ventricular Assist Device (LVAD). If yes, STOP here.: No The patient has current or prior documentation of left ventricular ejection fraction (LVEF) less than or equal to 40%, or moderate or severely depressed left ventricular systolic function.: No A. The patient was prescribed or already taking an Angiotensin-Converting Enzyme (CAMMY) Inhibitor, or Angiotensin Receptor Jeramy (ARB).: No B. The patient was prescribed or already taking a beta-jeramy. [If Yes to Both A & B, STOP here]: No Patient not prescribed/taking CAMMY or ARB, no reason given.: No Patient not prescribed/taking beta-jeramy, no reason given.: No PROFEE Charge Codes Discharge inpatient/observation: [id number]
[2023-11-25] MEDS: predniSONE 5 MG TABLET PO (10:11)
--- NOTE | 2023-11-25 11:45 | CM.DPNOTE ---
DC Note Discharge home with SO, priority board pass has been done and provided to patient. No addtl needs from this CM team identified. JW
--- NOTE | 2023-11-25 12:04 | PC.NURSE ---
Discharge: Pt feels ready to d\c to home. Reviewed speech therapy recommendations and they were given. Dr. Wen in twice to see patient and gave discharge instructions. Discharge packet given and reviewed. Pt to start rx this evening. Questions answered. Priority load pass given. Pt d/c to home via auto with spouse.
== END 2023-11-25 11:40 | disposition home or self-care (01) | DRG 205 ==
LOC: ED 16:21 → AC 17:18
PROVIDERS: Physician Assistant; Admitting Provider Internal Medicine; Emergency Provider Emergency Medicine; PCP Family Medicine; Referring Provider Emergency Medicine; Visit Provider Internal Medicine
DX: J95.89 Other postprocedural complications and disorders of respiratory system, not elsewhere classified (principal); J69.0 Pneumonitis due to inhalation of food and vomit; J96.01 Acute respiratory failure with hypoxia; D84.81 Immunodeficiency due to conditions classified elsewhere; C61 Malignant neoplasm of prostate; I71.40 Abdominal aortic aneurysm, without rupture, unspecified; K21.9 Gastro-esophageal reflux disease without esophagitis; K44.9 Diaphragmatic hernia without obstruction or gangrene; N18.31 Chronic kidney disease, stage 3a; I48.91 Unspecified atrial fibrillation; B34.8 Other viral infections of unspecified site
CPT/HCPCS: 0241U; 36415; 71045; 80048; 80053; 83605; 83880; 84145; 84484; 85025; 87040; 87633; 92610; 93005; 96360; 96361; 99285; J1650; J1956

== ENCOUNTER → 2023-12-07 11:30 | Outpatient (CLI) | payer MEDICARE, OTHER, SELFPAY ==
[2023-11-23 18:14] VITALS: BMI 23.2
[2023-12-07 20:25] LABS: Add Manual Diff / Slide Review NO; Basophils Absolute Auto 100 /uL (0-100); Basophils Percent Auto 0.6 % (0-2); Eosinophils Absolute Auto 200 /uL (0-450); Eosinophils Percent Auto 1.9 % (2-4); Hematocrit 39.2 % (41-53); Hemoglobin 12.7 g/dL (13.5-17.5); Lymphocytes Absolute Auto 1500 /uL (1100-4500); Lymphocytes Percent Auto 14.2 % (25-40); Mean Corpuscular HGB Conc 32.4 % (30-36); Mean Corpuscular Volume 89.4 fL (80-100); Monocytes Absolute Auto 1000 /uL (0-900); Monocytes Percent Auto 9.4 % (3-14); Neutrophils Absolute Auto 7600 /uL (1500-7000); Neutrophils Percent Auto 73.9 % (50-75); Platelet Count 269 X10^3/uL (150-400); Red Blood Cell Count 4.38 X10^6/uL (4.5-5.9); Red Cell Distribution Width 14.4 % (11.6-14.8); White Blood Cell Count 10.4 X10^3/uL (4.5-11.0)
[2023-12-07 20:34] LABS: Alanine Aminotransferase 14 IU/L (<50); Albumin 3.6 g/dL (3.5-5.0); Albumin Globulin Ratio 1.3 (1.0-2.8); Alkaline Phosphatase 58 U/L (38-126); Aspartate Aminotransferase 26 IU/L (17-59); BUN Creatinine Ratio 26.3 (6-22); Bilirubin Total 0.7 mg/dL (0.2-1.3); Blood Urea Nitrogen 31 mg/dL (9-20); Calcium 9.1 mg/dL (8.4-10.2); Carbon Dioxide 29 mmol/L (22-32); Chloride 104 mmol/L (98-107); Estimated Glomerular Filt Rate > 60 mL/min (>60); Globulin 2.8 g/dL (1.7-4.1); Glucose 103 mg/dL (80-110); HEMOLYSIS 27 (0-50); Sodium 139 mmol/L (137-145); Total Protein 6.4 g/dL (6.3-8.2)
[2023-12-07 20:36] LABS: HEMOLYSIS 22 (0-50); Iron 68 ug/dL (49-181)
[2023-12-07 20:49] LABS: Percent Iron Saturation 24 % (20-50); Total Iron Binding Capacity 280 ug/dL (261-462); Transferrin 209 mg/dL (206-381)
[2023-12-07 21:08] LABS: Ferritin 40 ng/mL (18-464)
[2023-12-07 21:45] LABS: Folate 13.8 ng/mL (2.76-20.0); Vitamin B12 345 pg/mL (239-931)
== END ==
PROVIDERS: PCP Family Medicine; Visit Provider Family Medicine
DX: I48.91 Unspecified atrial fibrillation (principal); D64.9 Anemia, unspecified; N18.31 Chronic kidney disease, stage 3a; R60.0 Localized edema; E87.1 Hypo-osmolality and hyponatremia; K44.9 Diaphragmatic hernia without obstruction or gangrene; R05.9 Cough, unspecified; E03.9 Hypothyroidism, unspecified
CPT/HCPCS: 80053; 82607; 82728; 82746; 83540; 83550; 85025

== ENCOUNTER → 2024-07-23 13:04 | Outpatient (CLI) | payer MEDICARE, OTHER, SELFPAY ==
[2024-01-17 12:45] VITALS: BMI 23.2
[2024-07-23 18:50] LABS: Add Manual Diff / Slide Review NO; Basophils Absolute Auto 100 /uL (0-100); Basophils Percent Auto 0.8 % (0-2); Eosinophils Absolute Auto 400 /uL (0-450); Eosinophils Percent Auto 4.4 % (2-4); Hematocrit 38.7 % (41-53); Hemoglobin 12.6 g/dL (13.5-17.5); Lymphocytes Absolute Auto 1500 /uL (1100-4500); Mean Corpuscular HGB Conc 32.5 % (30-36); Mean Corpuscular Hemoglobin 27.1 PG (26-34); Mean Corpuscular Volume 83.3 fL (80-100); Monocytes Absolute Auto 900 /uL (0-900); Monocytes Percent Auto 10.8 % (3-14); Neutrophils Absolute Auto 5900 /uL (1500-7000); Platelet Count 245 X10^3/uL (150-400); Red Blood Cell Count 4.65 X10^6/uL (4.5-5.9); Red Cell Distribution Width 16.7 % (11.6-14.8); White Blood Cell Count 8.7 X10^3/uL (4.5-11.0)
[2024-07-23 18:56] LABS: BUN Creatinine Ratio 23.8 (6-22); Blood Urea Nitrogen 31 mg/dL (9-20); Carbon Dioxide 28 mmol/L (22-32); Chloride 105 mmol/L (98-107); Estimated Glomerular Filt Rate 54 mL/min (>60); Glucose 111 mg/dL (70-99); HEMOLYSIS 20 (0-50); Potassium 4.4 mmol/L (3.4-5.1); Sodium 142 mmol/L (137-145)
[2024-07-23 19:07] LABS: NT-proBNP (BNP-Adult 18+) 387 pg/mL (<450); Troponin I 0.014 ng/mL (0.01-0.034)
[2024-07-23 19:27] LABS: TSH w/ Reflex to FT4 5.13 uIU/mL (0.47-4.68)
[2024-07-23 20:19] LABS: Free T4, Direct Thyroxine 1.13 ng/dL (0.78-2.19)
== END ==
PROVIDERS: PCP Family Medicine; Referring Provider Family Medicine; Visit Provider Family Medicine
DX: R06.02 Shortness of breath (principal); I48.0 Paroxysmal atrial fibrillation; I25.10 Atherosclerotic heart disease of native coronary artery without angina pectoris; R60.0 Localized edema
CPT/HCPCS: 80048; 83880; 84439; 84443; 84484; 85025

== ENCOUNTER → 2024-08-07 14:29 | Outpatient (CLI) | payer MEDICARE, OTHER, SELFPAY ==
[2024-01-17 12:45] VITALS: BMI 23.2
--- NOTE | 2024-08-07 14:30 | DI.ECHO.S_ITS ---
[place] [facility]+ [facility] : : [address] : : [place] : : [id number] : : Phone: [phone] Echocardiogram Report + + :Name: RYANN SOTO Study Date: 08/07/2024 Height: 70 in : :Hospital ReadingLocation: Weight: 178 lb : : Gender: Male BSA: 2.0 m2 : :: 1935 Age: 88 yrs BP: 130/69 mmHg: :Reason For Study: PAROXYSMAL ATRIAL FIBRILLATION : :Ordering Physician: RON, : :RASHAWN Performed By: Jonny Agosto : :Referring: RASHAWN VELASQUEZ : + + Interpretation Summary The ejection fraction is estimated to be 60-65%. The left atrium is mildly dilated. The aortic valve is mildly calcified. There is trace aortic regurgitation. There is mild tricuspid regurgitation. The right ventricular systolic pressure is estimated to be at least 31 mmHg based on an estimated right atrial pressure of 3 mm Hg. Procedure: A two-dimensional transthoracic echocardiogram with color flow and Doppler was performed. The study quality was technically good. Comparison is made with the echocardiogram of 09/29/2023. The patient was in normal sinus rhythm during the exam. Left Ventricle: The left ventricle is normal in size. There is normal left ventricular wall thickness. There is no ventricular septal defect visualized. The ejection fraction is estimated to be 60-65%. There are no focal wall motion abnormalities. Diastolic parameters suggest a relaxation abnormality of the left ventricle, consistent with probable normal filling pressures. Right Ventricle: The right ventricle is mildly dilated. The right ventricular systolic function is normal. Atria: The left atrium is mildly dilated. Right atrial size is normal. There is no Doppler evidence for an interatrial shunt. Mitral Valve: The mitral valve leaflets are mildly calcified. There is trace mitral regurgitation. Aortic Valve: The aortic valve is trileaflet. The aortic valve is mildly calcified. The aortic valve opens well. There is trace aortic regurgitation. Tricuspid Valve: The tricuspid valve leaflets are thin and pliable. There is mild tricuspid regurgitation. The right ventricular systolic pressure is estimated to be at least 31 mmHg based on an estimated right atrial pressure of 3 mm Hg. Pulmonic Valve: The pulmonic valve is not well visualized. There is no pulmonic valvular regurgitation. Great Vessels: The aortic root is mildly dilated. The dimensions of the ascending aorta are normal. The pulmonary artery is normal size. The IVC is of normal diameter and collapses greater than 50% with a sniff. This suggests a low right atrial pressure of 3 mm Hg. Pericardium/ Pleura There is no pericardial effusion. There is no pleural effusion. MMode/2D Measurements & Calculations LVIDd: 4.4 cm LVOT diam: 2.2 cm LVIDs: 2.9 cm Ao root diam: 3.8 cm FS: 33.6 % asc Aorta Diam: 3.6 cm EPSS: 0.71 cm IVSd: 0.89 cm LVPWd: 0.95 cm LV dutton. diameter/BSA (cm/m^2): 2.2 LV sys. diameter/BSA (cm/m^2): 1.5 LA A2 area: 20.2 cm2 RA long axis: 5.5 cm LA A4 area: 25.6 cm2 RA area: 15.7 cm2 LA length (vol): 6.7 cm RA vol: 38.2 ml LA vol: 65.9 ml RA : 19.2 ml/m2 LA vol index: 33.2 ml/m2 IVC diam: 2.1 cm RVD1 (basal): 4.3 cm RVD2 (mid): 3.6 cm TAPSE: 2.8 cm Doppler Measurements & Calculations Ao V2 max: 155.5 cm/sec LVOT Max Ramirez: 118.1 cm/sec Ao V2 mean: 101.3 cm/sec LV V1 max P.6 mmHg Ao max P.7 mmHg LV V1 VTI: 27.3 cm Ao mean P.6 mmHg TORI(I,D): 3.5 cm2 Ao V2 VTI: 29.3 cm TORI(V,D): 2.8 cm2 sev ratio: 0.93 TORI indexed to BSA (cm^2/m^2): 1.7 MV E max ramirez: 70.1 cm/sec TR max ramirez: 265.7 cm/sec MV A max ramirez: 87.7 cm/sec TR max P.2 mmHg MV E/A: 0.80 PA V2 max: 112.6 cm/sec Med Peak E' Ramirez: 6.1 cm/sec PA V2 mean: 70.9 cm/sec E/E' med: 11.5 PA mean P.2 mmHg Lat Peak E' Ramirez: 10.2 cm/sec PA pr(Accel): 43.0 mmHg E/E' lat: 6.9 E/e' average: 9.2 MV dec time: 0.26 sec SV(LVOT): 101.5 ml Reading Physician:05:18 PM
== END ==
PROVIDERS: PCP Family Medicine; Referring Provider Family Medicine; Visit Provider Family Medicine
DX: I48.0 Paroxysmal atrial fibrillation (principal); I07.1 Rheumatic tricuspid insufficiency; I77.89 Other specified disorders of arteries and arterioles
CPT/HCPCS: 93306

== ENCOUNTER → 2024-08-15 10:47 | Outpatient (CLI) | payer MEDICARE, OTHER, SELFPAY ==
[2024-01-17 12:45] VITALS: BMI 23.2
--- NOTE | 2024-08-15 10:50 | DI.RAD.S_ITS ---
PROCEDURE: FL BARIUM SWALLOW INDICATIONS: Paraesophageal hernia COMPARISON: [facility], CT, CT ABDOMEN PELVIS W CON, 08/20/2022, 10:16. [facility], CT, CT CHEST WO CON, 08/04/2022, 11:41. [facility], RF, FL BARIUM SWALLOW, 08/04/2022, 11:48. FINDINGS: Abdominal aortic stent. Function: There is esophageal dysmotility. Spontaneous and elicited gastroesophageal reflux. Gastroesophageal reflux to the level of the upper esophagus. No rj aspiration demonstrated. There is rapid transit of a calibrated barium tablet through the esophagus into the stomach. There is an upper esophageal diverticulum measuring approximately 3.9 cm, not significantly changed. Morphology: Air-contrast images demonstrate normal mucosal morphology. The esophagus appears patulous. Single contrast views show no esophageal strictures or extrinsic mass effect. Large paraesophageal hernia with estimated greater than 50% of the stomach above the diaphragm. IMPRESSION: 1. Large paraesophageal hernia. Similar in size. 2. 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 Measures 3.9 cm. Similar. 3. Marked esophageal dysmotility. Marked gastroesophageal reflux. Dictated by: Ozzy Fraser M.D. on 08/15/2024 at 12:27 Approved by: Ozzy Fraser M.D. on 08/15/2024 at 12:41
== END ==
PROVIDERS: PCP Family Medicine; Referring Provider Surgery; Visit Provider Surgery
DX: K44.9 Diaphragmatic hernia without obstruction or gangrene (principal); K22.4 Dyskinesia of esophagus; K21.9 Gastro-esophageal reflux disease without esophagitis; K22.5 Diverticulum of esophagus, acquired
CPT/HCPCS: 74220

== ENCOUNTER → 2024-10-08 13:53 | Outpatient (CLI) | payer MEDICARE, OTHER, SELFPAY ==
[2024-01-17 12:45] VITALS: BMI 23.2
[2024-10-08 19:01] LABS: Add Manual Diff / Slide Review NO; Hematocrit 34.8 % (41-53); Hemoglobin 11.7 g/dL (13.5-17.5); Lymphocytes Absolute Auto 1200 /uL (1100-4500); Mean Corpuscular HGB Conc 33.6 % (30-36); Mean Corpuscular Hemoglobin 27.6 PG (26-34); Mean Corpuscular Volume 82.2 fL (80-100); Platelet Count 226 X10^3/uL (150-400)
[2024-10-08 19:11] LABS: Alanine Aminotransferase 14 IU/L (<50); Albumin 3.6 g/dL (3.5-5.0); Albumin Globulin Ratio 1.3 (1.0-2.8); Alkaline Phosphatase 63 U/L (38-126); Blood Urea Nitrogen 43 mg/dL (9-20); Calcium 9.1 mg/dL (8.4-10.2); Carbon Dioxide 20 mmol/L (22-32); Chloride 107 mmol/L (98-107); Estimated Glomerular Filt Rate > 60 mL/min (>60); Globulin 2.8 g/dL (1.7-4.1); Glucose 94 mg/dL (70-99); HEMOLYSIS 17 (0-50); Potassium 4.2 mmol/L (3.4-5.1); Sodium 138 mmol/L (137-145); Total Protein 6.4 g/dL (6.3-8.2)
[2024-10-08 19:44] LABS: Prostate Specific Antigen < 0.064 ng/mL (0.10-4.00)
[2024-10-08 19:45] LABS: Ferritin 22 ng/mL (18-464)
[2024-10-08 19:49] LABS: Thyroid Stimulating Hormone 3.98 uIU/mL (0.47-4.68)
== END ==
PROVIDERS: Surgery; Urology; PCP Family Medicine; Visit Provider Family Medicine
DX: E03.9 Hypothyroidism, unspecified (principal); C61 Malignant neoplasm of prostate; K44.9 Diaphragmatic hernia without obstruction or gangrene; R79.89 Other specified abnormal findings of blood chemistry; D64.9 Anemia, unspecified
CPT/HCPCS: 80053; 82728; 84153; 84443; 85025

== ENCOUNTER → 2024-11-30 11:00 | Outpatient (CLI) | payer MEDICARE, OTHER, SELFPAY ==
[2024-01-17 12:45] VITALS: BMI 23.2
[2024-11-30 12:04] LABS: Hematocrit 37.2 % (41-53); Hemoglobin 12.2 g/dL (13.5-17.5); Mean Corpuscular HGB Conc 32.8 % (30-36); Mean Corpuscular Hemoglobin 27.4 PG (26-34); Mean Corpuscular Volume 83.6 fL (80-100); Platelet Count 238 X10^3/uL (150-400)
[2024-11-30 12:38] LABS: Blood Urea Nitrogen 27 mg/dL (9-20); Calcium 9.2 mg/dL (8.4-10.2); Carbon Dioxide 27 mmol/L (22-32); Chloride 104 mmol/L (98-107); Cholesterol 118 mg/dL (140-199); Estimated Glomerular Filt Rate 57 mL/min (>60); Glucose 89 mg/dL (70-99); HDL Cholesterol 50 mg/dL (40-60); HEMOLYSIS < 15 (0-50); Potassium 4.9 mmol/L (3.4-5.1); Sodium 140 mmol/L (137-145); Triglycerides 115 mg/dL (35-150)
[2024-11-30 12:39] LABS: HEMOLYSIS < 15 (0-50); Iron 81 ug/dL (49-181)
[2024-11-30 12:50] LABS: Percent Iron Saturation 26 % (20-50); Total Iron Binding Capacity 307 ug/dL (261-462); Transferrin 248 mg/dL (206-381)
[2024-11-30 13:13] LABS: Ferritin 22 ng/mL (18-464)
== END ==
PROVIDERS: PCP Family Medicine; Referring Provider Family Medicine; Visit Provider Family Medicine
DX: D64.9 Anemia, unspecified (principal); I25.10 Atherosclerotic heart disease of native coronary artery without angina pectoris; K44.9 Diaphragmatic hernia without obstruction or gangrene; R06.09 Other forms of dyspnea
CPT/HCPCS: 36415; 80048; 80061; 82728; 83540; 83550; 85027